=== PATIENT | male | born 1950 | race African-American/Black ===

== ENCOUNTER 2018-02-22 21:09 | Inpatient (IN) | payer OTHER, BC ==
[2018-02-22] MEDS ORDERED: SODIUM CHLORIDE 1,000 ML IV STA (21:25)
--- NOTE | 2018-02-22 21:25 | PDOC ---
Rapid Medical Evaluation Time Seen by Provider: 02/22/18 21:22 Medical Evaluation: Allergies Allergy/AdvReac Type Severity Reaction Status Date / Time No Known Allergies Allergy Verified 06/27/11 08:41 02/22/18 21:22 pt c/o: vomiting since yesterday, glucose reading over 600. took insulin which decreased glucose to 312. now elevated over 600, polydypsia Pt on brief exam: 106, afebrile Pt ordered for: labs, urine, fs, ivf pt to proceed to the ED Discharge Disposition - Diagnosis Vomiting - Referrals Referrals: Moisés Guo [Primary Care Provider] - - Patient Instructions - Post Discharge Activity
[2018-02-22 21:49] LABS: HEMATOCRIT 37.1 % (35.4-49); HEMOGLOBIN 11.9 GM/dL (11.7-16.9); LYMPH % 6.2 % (8-40); MCH 32.4 pg (25.7-33.7); MCHC 32.1 g/dl (32.0-35.9); MEAN CELL VOLUME 100.7 fl (80-96); MEAN PLT VOLUME 9.5 fl (7.5-11.1); MONO % 6.9 % (3.8-10.2); NEUT % 86.9 % (42.8-82.8); PLATELET COUNT 229 K/MM3 (134-434); RBC 3.68 M/mm3 (4.00-5.60); RDW 15.4 % (11.9-15.9); WHITE BLOOD COUNT 11.1 K/mm3 (4.0-10.0)
[2018-02-22 21:54] LABS: VENOUS PH 7.25 (7.32-7.42); VENOUS PO2 61.1 mmHg (28-48)
[2018-02-22] MEDS ORDERED: LACTATED RINGERS SOLUTION 1000 ML INFUS.BAG IV ONE (22:10)
--- NOTE | 2018-02-22 22:33 | PDOC ---
History of Present Illness - General Chief Complaint: Blood Sugar Problem Stated Complaint: BLOOD SUGAR PROBLEMS Time Seen by Provider: 02/22/18 21:22 History Source: Patient Exam Limitations: No Limitations Past History - Past Medical History Allergies/Adverse Reactions: Allergies Allergy/AdvReac Type Severity Reaction Status Date / Time No Known Allergies Allergy Verified 02/22/18 21:27 Home Medications: Ambulatory Orders Aspirin 81 mg PO DAILY 06/27/11 Insulin (LOG) Aspart [NovoLOG] unit SQ AM 06/27/11 Insulin Detemir [Levemir] 36 unit SQ HS 06/27/11 Levothyroxine Sodium [Synthroid] mcg PO DAILY 06/27/11 COPD: No Diabetes: Yes (IDDM) HTN: Yes Hypercholesterolemia: Yes Thyroid Disease: Yes (hypothyroidism) - Suicide/Smoking/Psychosocial Hx Smoking Status: No Smoking History: Never smoked Have you smoked in the past 12 months: No Number of Cigarettes Smoked Daily: 0 Information on smoking cessation initiated: No Hx Alcohol Use: No Drug/Substance Use Hx: No *Physical Exam - Vital Signs Last Vital Signs Temp Pulse Resp BP Pulse Ox 98.2 F 106 H 22 H 128/34 L 98 02/22/18 21:24 02/22/18 21:24 02/22/18 21:24 02/22/18 21:24 02/22/18 21:24 - Physical Exam General Appearance: No: Apparent Distress HEENT: positive: Other (Dry mucous membranes) Respiratory/Chest: positive: Lungs Clear, Normal Breath Sounds. negative: Respiratory Distress Cardiovascular: positive: Regular Rhythm, Regular Rate, S1, S2. negative: Murmur Gastrointestinal/Abdominal: positive: Normal Bowel Sounds, Soft. negative: Tender, Distended, Guarding, Rebound Integumentary: positive: Normal Color Neurologic: positive: Fully Oriented, Alert, Normal Mood/Affect Moderate Sedation - Procedure Monitoring Vital Signs: Procedure Monitoring Vital Signs Temperature 98.2 F 02/22/18 21:24 Pulse Rate 106 H 02/22/18 21:24 Respiratory Rate 22 H 02/22/18 21:24 Blood Pressure 128/34 L 02/22/18 21:24 O2 Sat by Pulse Oximetry (%) 98 02/22/18 21:24 ED Treatment Course - LABORATORY CBC & Chemistry Diagram: 02/22/18 21:34 02/22/18 21:34 - ADDITIONAL ORDERS Additional order review: Laboratory Results 02/22/18 02/22/18 21:36 21:34 VBG pH 7.25 L POC VBG pCO2 27.0 L POC VBG pO2 61.1 H Mixed VBG HCO3 11.4 L* Lipase 120 02/22/18 21:34 RBC 3.68 L MCV 100.7 H MCHC 32.1 RDW 15.4 D MPV 9.5 D Neutrophils % 86.9 H D Lymphocytes % 6.2 L D Monocytes % 6.9 Eosinophils % 0.0 D Basophils % 0.0 - Medications Given in the ED: ED Medications Discontinued Medications Generic Name Dose Route Start Last Admin Trade Name Freq PRN Reason Stop Dose Admin Sodium Chloride 1,000 mls @ 1,000 mls/hr 02/22/18 21:25 02/22/18 21:51 Normal Saline - IV 02/22/18 22:24 1,000 mls/hr ASDIR STA Administration Lactated Ringer's 2,000 ml 02/22/18 22:10 02/22/18 22:16 Lactated Ringers Solution IV 02/22/18 22:11 2,000 ml ONCE ONE Administration Medical Decision Making - Medical Decision Making 67 y/o M hx of Type 1 DM (on insulin pump; gets Humulin), HTN, hypothyroidism presents with NBNB emesis from yesterday and noted hyperglycemia today. States his sugar was 507 around 1 PM today for which he gave himself 10 units of insulin. Around 4:20 PM, he checked his sugar again and it was 600 so he gave himself another 10 units of insulin. Denies ever having this high of sugar before. Denies fever, URI sxs, SOB, CP, abd pain, diarrhea, urinary complaints, dizziness. Patient's labs concerning for acidosis with pH of 7.25 and bicarb of 11.4 Concern for DKA Rest of chemistry pending Currently patient is receiving 2L LR bolus Will consider starting insulin depending on K level 02/22/18 22:28 Labs concerning for DKA with elevated anion gap; K is 5.1 Patient given insulin bolus and started on insulin drip IV hydration continued Patient accepted to ICU service 02/22/18 23:16 *DC/Admit/Observation/Transfer Diagnosis at time of Disposition: DKA (diabetic ketoacidoses) Qualifiers: Diabetes mellitus type: type 1 Diabetes mellitus complication detail: without coma Qualified Code(s): E10.10 - Type 1 diabetes mellitus with ketoacidosis without coma - Discharge Dispostion Condition at time of disposition: Stable Decision to Admit order: Yes - Referrals Referrals: Moisés Guo [Primary Care Provider] - - Patient Instructions - Post Discharge Activity
[2018-02-22 22:35] LABS: ALBUMIN 3.8 g/dl (3.4-5.0); ALK PHOS 122 U/L (45-117); ANION GAP 26 MMOL/L (8-16); BILIRUBIN,TOTAL 1.7 mg/dL (0.2-1); BLOOD UREA NITROGEN 63 mg/dL (7-18); CALCIUM 8.5 mg/dL (8.5-10.1); CHLORIDE 90 mmol/L (98-107); CO2 13 mmol/L (21-32); CREATININE 3.3 mg/dL (0.55-1.3); POTASSIUM 5.1 mmol/L (3.5-5.1); SGOT/AST 39 U/L (15-37); SGPT/ALT 46 U/L (13-61); SODIUM 129 mmol/L (136-145); TOT PROT 7.2 g/dl (6.4-8.2)
[2018-02-22 22:43] LABS: GLUCOSE,RANDOM 929 mg/dL (74-106)
[2018-02-22] MEDS ORDERED: INSULIN REGULAR HUMAN 100 UNITS/ML *VIAL IVPUSH ONE (22:44)
[2018-02-22] MEDS ORDERED: INSULIN REGULAR 100 UNITS in SODIUM CHLORIDE 99 ML IVPB SCH (22:45)
--- NOTE | 2018-02-22 22:46 | PDOC ---
*Physical Exam - Vital Signs Last Vital Signs Temp Pulse Resp BP Pulse Ox 98.2 F 106 H 22 H 128/34 L 98 02/22/18 21:24 02/22/18 21:24 02/22/18 21:24 02/22/18 21:24 02/22/18 21:24 Heart Score/ECG Review - ECG Impressions Comment:: 02/23/18 05:11 Twelve-lead EKG was performed and reviewed by me. There is normal sinus rhythm with a rate of 108 rbbb imp: sinus tachycardia ED Treatment Course - LABORATORY CBC & Chemistry Diagram: 02/25/18 05:30 02/25/18 05:30 - ADDITIONAL ORDERS Additional order review: Laboratory Results 02/22/18 02/22/18 02/22/18 21:36 21:34 21:34 VBG pH 7.25 L POC VBG pCO2 27.0 L POC VBG pO2 61.1 H Mixed VBG HCO3 11.4 L* Sodium 129 L Potassium 5.1 Chloride 90 L Carbon Dioxide 13 L Anion Gap 26 H BUN 63 H Creatinine 3.3 H Creat Clearance w eGFR 18.91 Calcium 8.5 Total Bilirubin 1.7 H AST 39 H ALT 46 Alkaline Phosphatase 122 H Total Protein 7.2 Albumin 3.8 Lipase 120 02/22/18 21:34 RBC 3.68 L MCV 100.7 H MCHC 32.1 RDW 15.4 D MPV 9.5 D Neutrophils % 86.9 H D Lymphocytes % 6.2 L D Monocytes % 6.9 Eosinophils % 0.0 D Basophils % 0.0 - Medications Given in the ED: ED Medications Discontinued Medications Generic Name Dose Route Start Last Admin Trade Name Lennoxq PRN Reason Stop Dose Admin Sodium Chloride 1,000 mls @ 1,000 mls/hr 02/22/18 21:25 02/22/18 21:51 Normal Saline - IV 02/22/18 22:24 1,000 mls/hr ASDIR STA Administration Lactated Ringer's 2,000 ml 02/22/18 22:10 02/22/18 22:16 Lactated Ringers Solution IV 02/22/18 22:11 2,000 ml ONCE ONE Administration Medical Decision Making - Medical Decision Making 02/22/18 22:38 67y M hx of IDDM presents with vomiting for sevreal days. denies any fever/ chills/diarrhea/cp/cough/abd pain. Pt notes he has been unable to tolerate any intake for the past 3 days including fluids. last episode of dka when he was initially diagnosed with diabetes. exam: general: well appearing in no distress heent: dry mmm card: slightly tachy abd soft, nontender, no rebound/guarding labs reviewed consistent with dka will start insulin gtt fluids for hydration will admit to ICU CRITICAL CARE DOCUMENTATION: I spent 35 minutes of Critical Care time, excluding separately billable procedures, involving high complexity decision making to assess, manipulate and support vital system function(s) to treat single or multiple vital organ system failure and/or to prevent further life threatening deterioration of the patient' s condition. 03/01/18 08:01 The patient was seen and evaluated in conjunction with [facility] under my direct supervision, ancillary studies were reviewed. I independently evaluated the patient and I agree with the plan as outlined by [facility] . *DC/Admit/Observation/Transfer Diagnosis at time of Disposition: DKA (diabetic ketoacidoses) Qualifiers: Diabetes mellitus type: type 1 Diabetes mellitus complication detail: without coma Qualified Code(s): E10.10 - Type 1 diabetes mellitus with ketoacidosis without coma - Discharge Dispostion Condition at time of disposition: Improved - Referrals - Patient Instructions - Post Discharge Activity
[2018-02-22] MEDS ORDERED: INSULIN REGULAR HUMAN 100 UNITS/ML *VIAL ONE (22:49)
[2018-02-22 22:55] LABS: ACETONE SERUM POSITIVE MODERATE 2+ (NEGATIVE)
[2018-02-22] MEDS ORDERED: ONDANSETRON 4 MG/2 ML VIAL IVPB ONE (22:57)
[2018-02-22] MEDS ORDERED: ONDANSETRON 4 MG/2 ML VIAL ONE (22:57)
[2018-02-22] MEDS ORDERED: SODIUM CHLORIDE 0.9%/KCL 20 MEQ/1,000 ML INFUS.BAG IV SCH (23:00)
[2018-02-22] MEDS ORDERED: SODIUM CHLORIDE 1,000 ML IV ONE (23:45)
--- NOTE | 2018-02-22 23:48 | CONSULT ---
Consult Consult Specialty:: Pulm/CCM Referred by:: Dr. Mckeon Reason for Consultation:: DKA - History of Present Illness History of Present Illness: 67 yo M h/o IDDM type I on insulin pump w/ humulin, HTN, hypothyroidism on synthroid p/w n/v x 2 days and uncontrolled blood sugar. Patient said his pump showed that his blood sugar was in the 500s, he gave himself 10 units but it came back up to 600, for which he gave himself another 10 units. He reported that the pump is planted 6 months ago and it's working fine with proper amount of insulin doses equipped. He's vomited 6 times today and it was NBNB. Denies fever, chills, cough, urinary or bowel sx. - History Source History Provided By: Patient, Family Member - Past Medical History Cardio/Vascular: Yes: HTN Endocrine: Yes: Diabetes Mellitus, Hypothyroidism - Alcohol/Substance Use Hx Alcohol Use: No - Smoking History Smoking history: Never smoked Have you smoked in the past 12 months: No Aproximately how many cigarettes per day: 0 Home Medications - Allergies Allergies/Adverse Reactions: Allergies Allergy/AdvReac Type Severity Reaction Status Date / Time No Known Allergies Allergy Verified 02/22/18 21:27 - Home Medications Home Medications: Ambulatory Orders Aspirin 81 mg PO DAILY 06/27/11 Insulin (LOG) Aspart [NovoLOG] 81 unit SQ AM 06/27/11 Insulin Detemir [Levemir] 36 unit SQ HS 06/27/11 Levothyroxine Sodium [Synthroid] 25 mcg PO DAILY 06/27/11 Losartan/Hydrochlorothiazide [Losartan-Hctz 100-25 mg Tab] 1 each PO HS Simvastatin 20 mg PO HS 02/22/18 Review of Systems - Review of Systems Constitutional: denies: Chills, Fever Cardiovascular: denies: Chest Pain Respiratory: denies: Cough, SOB Gastrointestinal: reports: Nausea, Vomiting. denies: Diarrhea, Vomiting Blood Genitourinary: reports: No Symptoms Neurological: reports: No Symptoms Physical Exam Vital Signs: Vital Signs Temperature 98.2 F 02/22/18 21:24 Pulse Rate 106 H 02/22/18 21:24 Respiratory Rate 22 H 02/22/18 21:24 Blood Pressure 128/34 L 02/22/18 21:24 O2 Sat by Pulse Oximetry (%) 98 02/22/18 21:24 Constitutional: Yes: No Distress, Calm, Obese Eyes: Yes: Conjunctiva Clear, EOM Intact HENT: Yes: Atraumatic, Normocephalic Cardiovascular: Yes: Regular Rate and Rhythm, S1, S2. No: Murmur Respiratory: Yes: CTA Bilaterally Gastrointestinal: Yes: Normal Bowel Sounds, Abdomen, Obese, Tenderness (LUQ), Vomiting Edema: No Neurological: Yes: Alert, Oriented Labs: CBC, BMP 02/22/18 21:34 02/22/18 21:34 Imaging - Results X-ray: Image Reviewed Assessment/Plan 67 yo M h/o IDDM type I admitted to the ICU for DKA. A: DKA HTN Hypothyroidism CKD likely due to DM P: cont. insulin gtt w/ NS @500cc till glc reaches 200 then reduce to insulin gtt to 6 units/hour and switch fluids to d5w-1/2ns @250cc maintain K+ between 3-5 FS q1h, BMP q4h cont. synthroid and asa David Brown PGY3 ICU resident Visit type - Emergency Visit Emergency Visit: Yes ED Registration Date: 02/22/18 Care time: The patient presented to the Emergency Department on the above date and was hospitalized for further evaluation of their emergent condition. - New Patient This patient is new to me today: Yes Date on this admission: 02/23/18 - Critical Care Critical Care patient: Yes Total Critical Care Time (in minutes): 35 Critical Care Statement: The care of this patient involved high complexity decision making to prevent further life threatening deterioration of the patient 's condition and/or to evaluate & treat vital organ system(s) failure or risk of failure.
[2018-02-23 00:35] LABS: ANION GAP 27 MMOL/L (8-16); BLOOD UREA NITROGEN 69 mg/dL (7-18); CALCIUM 8.3 mg/dL (8.5-10.1); CHLORIDE 90 mmol/L (98-107); CO2 13 mmol/L (21-32); CREATININE 3.4 mg/dL (0.55-1.3); POTASSIUM 5.4 mmol/L (3.5-5.1); SODIUM 130 mmol/L (136-145)
[2018-02-23 00:36] LABS: GLUCOSE,RANDOM 927 mg/dL (74-106)
[2018-02-23] MEDS ORDERED: INSULIN REGULAR 100 UNITS in SODIUM CHLORIDE 99 ML IVPB SCH ×2 (00:41→23:30)
[2018-02-23 00:45] VITALS: BMI 33.6
[2018-02-23 03:58] LABS: BASO % 0.1 % (0-2.0); HEMATOCRIT 31.3 % (35.4-49); HEMOGLOBIN 10.7 GM/dL (11.7-16.9); LYMPH % 10.3 % (8-40); MCH 32.7 pg (25.7-33.7); MEAN CELL VOLUME 96.1 fl (80-96); MEAN PLT VOLUME 9.3 fl (7.5-11.1); MONO % 8.1 % (3.8-10.2); NEUT % 81.5 % (42.8-82.8); PLATELET COUNT 207 K/MM3 (134-434); RBC 3.26 M/mm3 (4.00-5.60); RDW 14.2 % (11.9-15.9); WHITE BLOOD COUNT 10.9 K/mm3 (4.0-10.0)
[2018-02-23 04:29] LABS: ANION GAP 16 MMOL/L (8-16); BLOOD UREA NITROGEN 72 mg/dL (7-18); CALCIUM 7.5 mg/dL (8.5-10.1); CHLORIDE 96 mmol/L (98-107); CO2 21 mmol/L (21-32); CREATININE 3.7 mg/dL (0.55-1.3); MAGNESIUM 2.8 mg/dL (1.8-2.4); SODIUM 132 mmol/L (136-145)
[2018-02-23 04:33] LABS: GLUCOSE,RANDOM 693 mg/dL (74-106)
[2018-02-23] MEDS ORDERED: SODIUM CHLORIDE 0.9%/KCL 20 MEQ/1,000 ML INFUS.BAG IV SCH (06:30)
[2018-02-23] MEDS: LEVOTHYROXINE NA 25 MCG TABLET (FP) PO SCH (06:35)
--- NOTE | 2018-02-23 07:46 | PN ---
Physical Exam: SUBJECTIVE: Patient seen and examined. Reports abdominal pain resolved, +nausea , denies vomiting. Feels overall improved this AM. OBJECTIVE: Vital Signs Period Temp Pulse Resp BP Sys/Evans Pulse Ox Last 24 Hr 98.1 F-98.9 F 86-110 14-22 110-128/34-64 96-100 GENERAL: Awake, alert, and fully oriented, in no acute distress HEAD: No signs of trauma, normocephalic, atraumatic EYES: PERRLA, EOMI, sclera anicteric, conjunctiva clear ENT: Hearing grossly normal, nares patent, oropharynx clear without exudates. Moist mucosa LUNGS: No distress, speaks full sentences, clear to auscultation bilaterally HEART: Regular rate and rhythm, normal S1 and S2, no murmurs appreciated, peripheral pulses normal and equal bilaterally ABDOMEN: Soft, nontender, normoactive bowel sounds. No guarding, no rebound EXTREMITIES : Normal inspection, Normal range of motion, no edema. No clubbing or cyanosis NEUROLOGICAL: Cranial nerves II through XII grossly intact. Normal speech, normal gait, no focal sensorimotor deficits SKIN: Warm, Dry ASSESSMENT/PLAN: The pt is a 67M w/ a PMH of T1DM on an insulin pump who was admitted to the ICU for DKA which is now resolved Neuro Pain well controlled CV HTN -Cont. home losartan HLD -Cont. home statin PULM Breathing comfortably on RA GI Nutrition -Will transition to PO when insulin gtt D/C'ed Adequate Uop CKD -Nephrology consulted IVF -NS w/ 20mEq KCl @ 125 HEME No anemia ID Afebrile, non-tachycardic, no leukocytosis ENDO T1DM w/ DKA -DKA resolved -Will D/C insulin gtt Hyperglycemia -Transition to pt's insulin pump -Continue IVF Hypothyroidism -Continue home synthroid MSK -OOB LTD -PIV Dispo: Patient does not require ICU level of care, plan to transfer to floor after D/C insulin gtt Visit type - Emergency Visit Emergency Visit: Yes ED Registration Date: 02/22/18 Care time: The patient presented to the Emergency Department on the above date and was hospitalized for further evaluation of their emergent condition. - New Patient This patient is new to me today: Yes Date on this admission: 02/23/18 - Critical Care Critical Care patient: Yes Total Critical Care Time (in minutes): 40 Critical Care Statement: The care of this patient involved high complexity decision making to prevent further life threatening deterioration of the patient 's condition and/or to evaluate & treat vital organ system(s) failure or risk of failure.
[2018-02-23 08:31] LABS: ANION GAP 11 MMOL/L (8-16); BLOOD UREA NITROGEN 74 mg/dL (7-18); CALCIUM 7.9 mg/dL (8.5-10.1); CHLORIDE 98 mmol/L (98-107); CO2 24 mmol/L (21-32); CREATININE 3.6 mg/dL (0.55-1.3); SODIUM 134 mmol/L (136-145)
[2018-02-23 08:35] LABS: GLUCOSE,RANDOM 579 mg/dL (74-106)
[2018-02-23] MEDS ORDERED: PT OWN MED DRAWER 7, Y5N ONE (08:57)
[2018-02-23 10:10] LABS: ARTERIAL BLOOD GAS BASE EXCESS 1.1 meq/l (-2-2); ARTERIAL BLOOD GAS PCO2 43.2 mmHg (35-45); ARTERIAL BLOOD GAS PO2 83.1 mmHg (80-100); ARTERIAL BLOOD GAS pH 7.39 (7.35-7.45)
[2018-02-23 10:13] LABS: ALLENS TEST POSITIVE
[2018-02-23] MEDS: HEPARIN NA (PORCINE) 5,000 UNITS/ML 1ML VIAL SQ SCH ×2 (10:26→21:09)
[2018-02-23] MEDS: ASPIRIN 81 MG CHEWABLE TABLETS PO SCH (10:26)
[2018-02-23] MEDS: MUPIROCIN 2% TOPICAL OINTMENT FOR DECOLONIZATION NS SCH ×2 (10:26→21:09)
--- NOTE | 2018-02-23 11:48 | HP ---
Admitting History and Physical - Primary Care Physician PCP: Josselyn Mace I - Admission History Source: Patient Limitations to Obtaining History: No Limitations - Past Medical History Cardiovascular: Yes: HTN Endocrine: Yes: Diabetes Mellitus, Hypothyroidism - Smoking History Smoking history: Never smoked Have you smoked in the past 12 months: No Aproximately how many cigarettes per day: 0 - Alcohol/Substance Use Hx Alcohol Use: No - Social History ADL: Independent Home Medications - Allergies Allergies/Adverse Reactions: Allergies Allergy/AdvReac Type Severity Reaction Status Date / Time No Known Allergies Allergy Verified 02/22/18 21:27 - Home Medications Home Medications: Ambulatory Orders Aspirin 81 mg PO DAILY 06/27/11 Insulin (LOG) Aspart [NovoLOG] 81 unit SQ AM 06/27/11 Insulin Detemir [Levemir] 36 unit SQ HS 06/27/11 Levothyroxine Sodium [Synthroid] 25 mcg PO DAILY 06/27/11 Losartan/Hydrochlorothiazide [Losartan-Hctz 100-25 mg Tab] 1 each PO HS Simvastatin 20 mg PO HS 02/22/18 Review of Systems - Review of Systems Constitutional: reports: No Symptoms Eyes: reports: No Symptoms HENT: reports: No Symptoms Neck: reports: No Symptoms Cardiovascular: reports: No Symptoms Respiratory: reports: No Symptoms Gastrointestinal: reports: No Symptoms Genitourinary: reports: No Symptoms Breasts: reports: No Symptoms Reported Musculoskeletal: reports: No Symptoms Integumentary: reports: No Symptoms Neurological: reports: No Symptoms Endocrine: reports: Increased Hunger, Other (Vomiting) Hematology/Lymphatic: reports: No Symptoms Psychiatric: reports: No Symptoms Physical Examination Vital Signs: Vital Signs Temperature 98.6 F 02/23/18 10:00 Pulse Rate 73 02/23/18 10:00 Respiratory Rate 25 H 02/23/18 10:00 Blood Pressure 113/51 L 02/23/18 10:00 O2 Sat by Pulse Oximetry (%) 100 02/23/18 09:00 Constitutional: Yes: Well Nourished Eyes: Yes: Conjunctiva Clear HENT: Yes: Atraumatic, Normocephalic Neck: Yes: Supple, Trachea Midline Cardiovascular: Yes: Regular Rate and Rhythm Respiratory: Yes: Regular, CTA Bilaterally Gastrointestinal: Yes: Normal Bowel Sounds, Soft ...Rectal Exam: Yes: Deferred Renal/: Yes: WNL Breast(s): Yes: WNL Musculoskeletal: Yes: WNL Extremities: Yes: WNL Edema: No Peripheral Pulses WNL: Yes Integumentary: Yes: WNL Neurological: Yes: Alert, Oriented ...Motor Strength: WNL Psychiatric: Yes: Alert, Oriented Labs: CBC, BMP 02/23/18 03:30 02/23/18 05:30 Assessment/Plan 67 y/o male admitted to ICU for BG > 600 and vomiting for several days. PMHX includes HTN, IDDM and Hypothyroidism.
--- NOTE | 2018-02-23 11:54 | EKG ---
Test Reason : Blood Pressure : / mmHG Vent. Rate : 108 BPM Atrial Rate : 108 BPM P-R Int : 170 ms QRS Dur : 118 ms QT Int : 382 ms P-R-T Axes : 069 116 039 degrees QTc Int : 511 ms SINUS TACHYCARDIA RIGHT BUNDLE BRANCH BLOCK ABNORMAL ECG NO PREVIOUS ECGS AVAILABLE Confirmed by PJ CRAIG, JAY JAY ([id number]) on 02/23/2018 11:54:11 AM Referred By: Confirmed By:JAY JAY OLIVA MD
--- NOTE | 2018-02-23 13:20 | PN ---
Teaching Attending Note Name of Resident: Jus Stiles ATTENDING PHYSICIAN STATEMENT I saw and evaluated the patient. I reviewed the resident's note and discussed the case with the resident. I agree with the resident's findings and plan as documented. SUBJECTIVE: Patient seen and examined in the ICU. Awake and alert. Remains on IV Insulin drip. Blood sugars are still in the [address] Patel is his Fine [employer] P[employer] and he does have a apparent functioning Insulin pump. No CP or SOB. Intake & Output 02/20/18 02/21/18 02/22/18 02/23/18 23:59 23:59 23:59 23:59 Intake Total 1350 Output Total 500 Balance 850 Weight 262 lb 1 oz Last Vital Signs Temp Pulse Resp BP Pulse Ox 98.6 F 73 25 H 110/52 L 100 02/23/18 10:00 02/23/18 10:00 02/23/18 12:00 02/23/18 12:00 02/23/18 09:00 Active Medications Aspirin (Asa -) 81 mg PO DAILY [facility] Last Admin: 02/23/18 10:26 Dose: 81 mg Atorvastatin Calcium (Lipitor -) 10 mg PO HS [facility] Chlorhexidine Gluconate (Hibiclens For Decolonization -) 1 applic TP HS [facility] Heparin Sodium (Porcine) (Heparin -) 5,000 unit SQ BID [facility] Last Admin: 02/23/18 10:26 Dose: 5,000 unit Insulin Human Regular 100 (units/ Sodium Chloride) 100 mls @ 24.22 mls/hr IVPB [facility]IT[facility]; Protocol Last Admin: 02/23/18 00:30 Dose: 0.2 units/kg/hr, 24.22 mls/hr Potassium Chloride/Sodium Chloride (Ns+20 Meq Kcl -) 20 meq in 1,000 mls @ 250 mls/hr IV ASDIR [facility] Last Admin: 02/23/18 06:38 Dose: 250 mls/hr Levothyroxine Sodium (Synthroid -) 25 mcg PO DAILY@0700 [facility] Last Admin: 02/23/18 06:35 Dose: 25 mcg Losartan Potassium (Cozaar -) 100 mg PO HS [facility] Mupirocin (Bactroban Ointment (For Decolonization) -) 1 applic NS BID [facility] Stop: 02/28/18 09:59 Last Admin: 02/23/18 10:26 Dose: 1 applic Pneumococcal 13-Valent Conj Vacc (Prevnar 13 Syringe -) 0.5 ml IM .ONCE ONE Stop: 02/23/18 00:46 Constitutional: Yes: No Distress, Calm, Obese Eyes: Yes: Conjunctiva Clear, EOM Intact HENT: Yes: Atraumatic, Normocephalic Cardiovascular: Yes: Regular Rate and Rhythm, S1, S2. No: Murmur Respiratory: Yes: CTA Bilaterally Gastrointestinal: Yes: Normal Bowel Sounds, Obese, Non tender Edema: No Neurological: Yes: Alert, Oriented Labs: Laboratory Results - last 24 hr 02/22/18 02/22/18 02/22/18 21:34 21:34 21:34 WBC 11.1 H RBC 3.68 L Hgb 11.9 Hct 37.1 MCV 100.7 H MCH 32.4 MCHC 32.1 RDW 15.4 D Plt Count 229 MPV 9.5 D Absolute Neuts (auto) 9.6 H Neutrophils % 86.9 H D Lymphocytes % 6.2 L D Monocytes % 6.9 Eosinophils % 0.0 D Basophils % 0.0 Nucleated RBC % 0 Puncture Site ABG pH ABG pCO2 at Pt Temp ABG pO2 at Pt Temp ABG HCO3 ABG O2 Sat (Measured) ABG O2 Content ABG Base Excess Sebastián Test VBG pH POC VBG pCO2 POC VBG pO2 Mixed VBG HCO3 Oxygen Flow Rate Sodium 129 L Potassium 5.1 Chloride 90 L Carbon Dioxide 13 L Anion Gap 26 H BUN 63 H Creatinine 3.3 H Creat Clearance w eGFR 18.91 POC Glucometer Random Glucose 929 H* Hemoglobin A1c % Calcium 8.5 Magnesium Total Bilirubin 1.7 H AST 39 H ALT 46 Alkaline Phosphatase 122 H Total Protein 7.2 Albumin 3.8 Lipase 120 Acetone, Qual Positive moderate 2+ 02/22/18 02/22/18 02/22/18 21:36 22:14 23:35 WBC RBC Hgb Hct MCV MCH MCHC RDW Plt Count MPV Absolute Neuts (auto) Neutrophils % Lymphocytes % Monocytes % Eosinophils % Basophils % Nucleated RBC % Puncture Site ABG pH ABG pCO2 at Pt Temp ABG pO2 at Pt Temp ABG HCO3 ABG O2 Sat (Measured) ABG O2 Content ABG Base Excess Sebastián Test VBG pH 7.25 L POC VBG pCO2 27.0 L POC VBG pO2 61.1 H Mixed VBG HCO3 11.4 L* Oxygen Flow Rate Sodium 130 L Potassium 5.4 H Chloride 90 L Carbon Dioxide 13 L Anion Gap 27 H BUN 69 H Creatinine 3.4 H Creat Clearance w eGFR 18.27 POC Glucometer > 400 Random Glucose 927 H* Hemoglobin A1c % Calcium 8.3 L Magnesium Total Bilirubin AST ALT Alkaline Phosphatase Total Protein Albumin Lipase Acetone, Qual 02/23/18 02/23/18 02/23/18 00:38 02:06 03:13 WBC RBC Hgb Hct MCV MCH MCHC RDW Plt Count MPV Absolute Neuts (auto) Neutrophils % Lymphocytes % Monocytes % Eosinophils % Basophils % Nucleated RBC % Puncture Site ABG pH ABG pCO2 at Pt Temp ABG pO2 at Pt Temp ABG HCO3 ABG O2 Sat (Measured) ABG O2 Content ABG Base Excess Sebastián Test VBG pH POC VBG pCO2 POC VBG pO2 Mixed VBG HCO3 Oxygen Flow Rate Sodium Potassium Chloride Carbon Dioxide Anion Gap BUN Creatinine Creat Clearance w eGFR POC Glucometer > 400 > 400 > 400 Random Glucose Hemoglobin A1c % Calcium Magnesium Total Bilirubin AST ALT Alkaline Phosphatase Total Protein Albumin Lipase Acetone, Qual 02/23/18 02/23/18 02/23/18 03:30 03:30 05:08 WBC 10.9 H RBC 3.26 L Hgb 10.7 L Hct 31.3 L D MCV 96.1 H MCH 32.7 MCHC 34.0 RDW 14.2 Plt Count 207 MPV 9.3 Absolute Neuts (auto) 8.9 H Neutrophils % 81.5 Lymphocytes % 10.3 D Monocytes % 8.1 Eosinophils % 0.0 Basophils % 0.1 D Nucleated RBC % 0 Puncture Site ABG pH ABG pCO2 at Pt Temp ABG pO2 at Pt Temp ABG HCO3 ABG O2 Sat (Measured) ABG O2 Content ABG Base Excess Sebastián Test VBG pH POC VBG pCO2 POC VBG pO2 Mixed VBG HCO3 Oxygen Flow Rate Sodium 132 L Potassium 4.0 Chloride 96 L Carbon Dioxide 21 Anion Gap 16 BUN 72 H Creatinine 3.7 H Creat Clearance w eGFR 16.57 POC Glucometer > 400 Random Glucose 693 H* Hemoglobin A1c % Calcium 7.5 L Magnesium 2.8 H Total Bilirubin AST ALT Alkaline Phosphatase Total Protein Albumin Lipase Acetone, Qual 02/23/18 02/23/18 02/23/18 05:30 05:30 06:09 WBC RBC Hgb Hct MCV MCH MCHC RDW Plt Count MPV Absolute Neuts (auto) Neutrophils % Lymphocytes % Monocytes % Eosinophils % Basophils % Nucleated RBC % Puncture Site ABG pH ABG pCO2 at Pt Temp ABG pO2 at Pt Temp ABG HCO3 ABG O2 Sat (Measured) ABG O2 Content ABG Base Excess Sebastián Test VBG pH POC VBG pCO2 POC VBG pO2 Mixed VBG HCO3 Oxygen Flow Rate Sodium 134 L Potassium 4.0 Chloride 98 Carbon Dioxide 24 Anion Gap 11 BUN 74 H Creatinine 3.6 H Creat Clearance w eGFR 17.10 POC Glucometer > 400 Random Glucose 579 H* Hemoglobin A1c % 9.7 H Calcium 7.9 L Magnesium Total Bilirubin AST ALT Alkaline Phosphatase Total Protein Albumin Lipase Acetone, Qual 02/23/18 02/23/18 02/23/18 08:24 09:38 10:00 WBC RBC Hgb Hct MCV MCH MCHC RDW Plt Count MPV Absolute Neuts (auto) Neutrophils % Lymphocytes % Monocytes % Eosinophils % Basophils % Nucleated RBC % Puncture Site Right radial ABG pH 7.39 ABG pCO2 at Pt Temp 43.2 ABG pO2 at Pt Temp 83.1 ABG HCO3 25.7 ABG O2 Sat (Measured) 96.0 ABG O2 Content 14.4 L ABG Base Excess 1.1 Sebastián Test Positive VBG pH POC VBG pCO2 POC VBG pO2 Mixed VBG HCO3 Oxygen Flow Rate Room air Sodium Potassium Chloride Carbon Dioxide Anion Gap BUN Creatinine Creat Clearance w eGFR POC Glucometer [phone] Random Glucose Hemoglobin A1c % Calcium Magnesium Total Bilirubin AST ALT Alkaline Phosphatase Total Protein Albumin Lipase Acetone, Qual 02/23/18 02/23/18 11:27 12:33 WBC RBC Hgb Hct MCV MCH MCHC RDW Plt Count MPV Absolute Neuts (auto) Neutrophils % Lymphocytes % Monocytes % Eosinophils % Basophils % Nucleated RBC % Puncture Site ABG pH ABG pCO2 at Pt Temp ABG pO2 at Pt Temp ABG HCO3 ABG O2 Sat (Measured) ABG O2 Content ABG Base Excess Sebastián Test VBG pH POC VBG pCO2 POC VBG pO2 Mixed VBG HCO3 Oxygen Flow Rate Sodium Potassium Chloride Carbon Dioxide Anion Gap BUN Creatinine Creat Clearance w eGFR POC Glucometer [phone] Random Glucose Hemoglobin A1c % Calcium Magnesium Total Bilirubin AST ALT Alkaline Phosphatase Total Protein Albumin Lipase Acetone, Qual Assessment/Plan Resolving DKA / Hyperosmolar state IDDM HTN Hypothyroidism CKD likely due to DM R/O KEERTHI Insulin drip Can transition to SQ or if information can be obtained from [employer] his Insulin pump can be restarted Would continue IVF resuscitation Monitor I & O O2 as needed VTE prophylaxis Would sleep screen Replete electrolytes as indicated PO as tolerated ICU monitoring while on IV Insulin Dr Self Critical care time spent in reviewing chart, evaluating patient and formulating plan - 36 minutes.
--- NOTE | 2018-02-23 14:13 | CONSULT ---
Consult - text type - Consultation Consultation Note: Renal Consult for KEERTHI vs. CKD This is a 67 year old gentleman with hx of DM Type 1 on insulin, hypothyroidism who presented with N/V and found to have DKA with Cr of 3.3 to 3.6. Pt denies any history of CKD but reports he was placed on Losartan/HCTZ for renal protection 5 years ago. Denies any obstructive symptoms but did have increased urine output overt the past 3 days. Denies any flank pain dysuria or hematuria. Denies any NSAID use, no recent contrast exposure. No skin rash or recent Abx exposure. Denies any family hx of CKD. Reports BP is usually normal. Denies any cp, abd pain, N/V/D. PMHx: as above Allergies: NKDA Family Hx: NC Social Hx: No T/A/D ROS: as per HPI, all other pertinent ros negative Home Medications Medication Instructions Recorded Aspirin 81 mg PO DAILY 06/27/11 Insulin (LOG) Aspart [NovoLOG] 81 unit SQ AM 06/27/11 Insulin Detemir [Levemir] 36 unit SQ HS 06/27/11 Levothyroxine Sodium [Synthroid] 25 mcg PO DAILY 06/27/11 Losartan/Hydrochlorothiazide 1 each PO HS 02/22/18 [Losartan-Hctz 100-25 mg Tab] Simvastatin 20 mg PO HS 02/22/18 Vital Signs Temperature 97.9 F 02/23/18 13:33 Pulse Rate 82 02/23/18 13:33 Respiratory Rate 25 H 02/23/18 13:33 Blood Pressure 101/77 02/23/18 13:33 O2 Sat by Pulse Oximetry (%) 100 02/23/18 09:00 Intake & Output 02/20/18 02/21/18 02/22/18 02/23/18 23:59 23:59 23:59 23:59 Intake Total 1350 Output Total 500 Balance 850 Weight 118.87 kg NAD awake and alert neck supple, no JVD RRR, No M/R CTA, no rales soft NT/ND no bladder distension no LE edema, clubbing or cyanosis no focal neurological defects CBC, BMP 02/23/18 03:30 02/23/18 05:30 Laboratory Tests 02/22/18 02/23/18 21:34 05:30 Calcium 7.9 L Acetone, Qual Positive moderate 2+ Current Medications Aspirin (Asa -) 81 mg PO DAILY [facility] Last Admin: 02/23/18 10:26 Dose: 81 mg Atorvastatin Calcium (Lipitor -) 10 mg PO HS [facility] Chlorhexidine Gluconate (Hibiclens For Decolonization -) 1 applic TP HS [facility] Heparin Sodium (Porcine) (Heparin -) 5,000 unit SQ BID [facility] Last Admin: 02/23/18 10:26 Dose: 5,000 unit Insulin Human Regular 100 (units/ Sodium Chloride) 100 mls @ 24.22 mls/hr IVPB [facility]; Protocol Last Admin: 02/23/18 00:30 Dose: 0.2 units/kg/hr, 24.22 mls/hr Potassium Chloride/Sodium Chloride (Ns+20 Meq Kcl -) 20 meq in 1,000 mls @ 250 mls/hr IV ASDIR [facility] Last Admin: 02/23/18 06:38 Dose: 250 mls/hr Levothyroxine Sodium (Synthroid -) 25 mcg PO DAILY@0700 [facility] Last Admin: 02/23/18 06:35 Dose: 25 mcg Losartan Potassium (Cozaar -) 100 mg PO HS [facility] Mupirocin (Bactroban Ointment (For Decolonization) -) 1 applic NS BID [facility] Stop: 02/28/18 09:59 Last Admin: 02/23/18 10:26 Dose: 1 applic Pneumococcal 13-Valent Conj Vacc (Prevnar 13 Syringe -) 0.5 ml IM .ONCE ONE Stop: 02/23/18 00:46 67 year old gentleman with hx of DM Type 1 on insulin, hypothyroidism who presented with N/V and found to have DKA with Cr of 3.3 to 3.6. #KEERTHI vs. CKD #DKA #DM Type 1 on insulin #Hypertension #Pseudohyponatremia #Anemia #HLD will need to establish baseline renal function, will contact PMD office to obtain records given clinical setting of DKA, high BUN/Cr ratio suspect underlying hypovolemia as etiology of KEERTHI Check FeNa, UPCR, Urine Eos Renal US showed no overt pathology however kidneys may be small in size given pt is 6'2'' tall Dose all meds for CrCl < 15 Hod ARB until baseline renal function is established No urgent indication for ADMINISTRATIVE INTERN at the present time Check BMP Twice daily Continue aggressive IVF repletion insulin as per ICU Trend H/H Check iron profile, no acute need for transfusion Check CK levels given pt is on statin Thank you Will follow Trip Sanders DO
[2018-02-23 16:49] LABS: URINE APPEARANCE CLEAR; URINE BILIRUBIN NEGATIVE (<2.0 mg/dL); URINE COLOR LTYELLOW; URINE GLUCOSE (UA) 3+ (NEGATIVE); URINE KETONE NEGATIVE (NEGATIVE); URINE LEUK ESTERASE NEGATIVE (NEGATIVE); URINE NITRITE NEGATIVE (NEGATIVE); URINE PROTEIN NEGATIVE (NEGATIVE); URINE UROBILINOGEN NEGATIVE mg/dL (0.2-1.0)
[2018-02-23] MEDS: ATORVASTATIN CA 10 MG TABLET (FP) PO SCH (21:09)
[2018-02-23] MEDS ORDERED: INSULIN (LEVEMIR) 100 UNITS/ML UNITS SQ SCH ×3 (21:15→22:00)
[2018-02-23] MEDS ORDERED: INSULIN SLIDING SCALE (NOVOLOG) 1 VIAL SQ SCH ×3 (21:15→22:00)
[2018-02-23] MEDS: CHLORHEXIDINE GLUCONATE 4% CLEANSER FOR DECOLONIZATION TP SCH (21:24)
[2018-02-23] MEDS ORDERED: PATIENT'S OWN MEDICATION (NON-FORMULARY) (Losartan/Hydrochlorothiazide [Losartan-Hctz 100- PO SCH (22:00)
[2018-02-23] MEDS ORDERED: LOSARTAN POTASSIUM 50 MG TABLET (FP) PO SCH (22:00)
[2018-02-23] MEDS ORDERED: HYDROCHLOROTHIAZIDE 25 MG TABLET (FP) PO SCH (22:00)
[2018-02-23 23:11] LABS: ANION GAP 17 MMOL/L (8-16); BLOOD UREA NITROGEN 62 mg/dL (7-18); CALCIUM 7.6 mg/dL (8.5-10.1); CHLORIDE 101 mmol/L (98-107); CO2 16 mmol/L (21-32); CREATININE 2.6 mg/dL (0.55-1.3); SODIUM 134 mmol/L (136-145)
[2018-02-23 23:12] LABS: GLUCOSE,RANDOM 492 mg/dL (74-106); POTASSIUM 6.4 mmol/L (3.5-5.1)
[2018-02-23] MEDS ORDERED: SODIUM POLYSTYRENE SULFONATE 15 GM/60 ML BOTTLE PO ONE (23:24)
[2018-02-23] MEDS ORDERED: ALBUTEROL SO4 0.042% IH SOL 1.25 MG/3 ML VIAL.NEB NEB ONE (23:24)
[2018-02-23] MEDS ORDERED: LACTATED RINGERS SOLUTION 1,000 ML/1,000 ML INFUS.BAG IV SCH (23:30)
--- NOTE | 2018-02-23 23:37 | PN ---
Progress Note (short form) - Note Progress Note: On repeat BMP, patient noted to be hyperglycemic to 492, AG of 17, HCO3 of 16. Insulin gtt restarted. NPO. BGM Q2H. LR @ 125. K 6.4. ECG, Albuterol, and Kayexalate ordered Patient denies chest pain, palpitations, SOB, abdominal pain, N/V/D Will repeat BMP at 0300
[2018-02-24 04:02] LABS: ANION GAP 8 MMOL/L (8-16); BLOOD UREA NITROGEN 54 mg/dL (7-18); CALCIUM 7.8 mg/dL (8.5-10.1); CHLORIDE 107 mmol/L (98-107); CO2 26 mmol/L (21-32); CREATININE 2.3 mg/dL (0.55-1.3); GLUCOSE,RANDOM 266 mg/dL (74-106); POTASSIUM 3.9 mmol/L (3.5-5.1); SODIUM 141 mmol/L (136-145)
[2018-02-24] MEDS: SODIUM CHLORIDE 0.45%/POT 20 MEQ/1,000 ML INFUS.BAG IV SCH ×2 (04:35→15:21)
[2018-02-24] MEDS: INSULIN SLIDING SCALE (NOVOLOG) 1 VIAL SQ SCH ×4 (06:44→22:00)
[2018-02-24 06:52] LABS: BASO % 0.1 % (0-2.0); EOS % 0.2 % (0-4.5); HEMATOCRIT 34.4 % (35.4-49); LYMPH % 14.3 % (8-40); MCH 30.3 pg (25.7-33.7); MEAN CELL VOLUME 94.7 fl (80-96); MEAN PLT VOLUME 8.6 fl (7.5-11.1); MONO % 10.2 % (3.8-10.2); NEUT % 75.2 % (42.8-82.8); PLATELET COUNT 190 K/MM3 (134-434); RBC 3.64 M/mm3 (4.00-5.60); RDW 13.9 % (11.9-15.9); WHITE BLOOD COUNT 11.4 K/mm3 (4.0-10.0)
[2018-02-24 07:02] LABS: ALBUMIN 2.8 g/dl (3.4-5.0); ALK PHOS 99 U/L (45-117); ANION GAP 5 MMOL/L (8-16); BILIRUBIN,TOTAL 1.1 mg/dL (0.2-1); BLOOD UREA NITROGEN 50 mg/dL (7-18); CALCIUM 7.8 mg/dL (8.5-10.1); CHLORIDE 107 mmol/L (98-107); CO2 29 mmol/L (21-32); GLUCOSE,RANDOM 149 mg/dL (74-106); POTASSIUM 4.1 mmol/L (3.5-5.1); SGOT/AST 90 U/L (15-37); SGPT/ALT 60 U/L (13-61); SODIUM 141 mmol/L (136-145)
[2018-02-24] MEDS: LEVOTHYROXINE NA 25 MCG TABLET (FP) PO SCH (07:18)
--- NOTE | 2018-02-24 08:50 | PN ---
Progress Note (short form) - Note Progress Note: Renal follow up for KEETRHI Pt seen and examined in the ICU awake and alert no acute complaints denies any sob, cp, abd pain tolerating oral diet making urine on IVF Vital Signs Temperature 98.5 F 02/24/18 06:00 Pulse Rate 18 L 02/24/18 08:00 Respiratory Rate 82 H 02/24/18 08:00 Blood Pressure 135/70 02/24/18 08:00 O2 Sat by Pulse Oximetry (%) 100 02/23/18 21:00 Intake & Output 02/21/18 02/22/18 02/23/18 02/24/18 23:59 23:59 23:59 23:59 Intake Total 4415 363.5 Output Total 2100 1000 Balance 2315 -636.5 Weight 118.87 kg NAD awake and alert no LE edema CBC, BMP 02/24/18 05:30 02/24/18 05:30 Current Medications Aspirin (Asa -) 81 mg PO DAILY [facility] Last Admin: 02/23/18 10:26 Dose: 81 mg Atorvastatin Calcium (Lipitor -) 10 mg PO HS [facility] Last Admin: 02/23/18 21:09 Dose: 10 mg Chlorhexidine Gluconate (Hibiclens For Decolonization -) 1 applic TP HS [facility] Last Admin: 02/23/18 21:24 Dose: 1 applic Heparin Sodium (Porcine) (Heparin -) 5,000 unit SQ BID [facility] Last Admin: 02/23/18 21:09 Dose: 5,000 unit Potassium Chloride/Sodium Chloride (1/2ns+20meq Kcl) 20 meq in 1,000 mls @ 125 mls/hr IV ASDIR [facility] Last Admin: 02/24/18 04:35 Dose: 125 mls/hr Insulin Aspart (Novolog Vial Sliding Scale -) 1 vial SQ [facility]; Protocol Last Admin: 02/24/18 06:44 Dose: 2 units Levothyroxine Sodium (Synthroid -) 25 mcg PO DAILY@0700 [facility] Last Admin: 02/24/18 07:18 Dose: 25 mcg Mupirocin (Bactroban Ointment (For Decolonization) -) 1 applic NS BID [facility] Stop: 02/28/18 09:59 Last Admin: 02/23/18 21:09 Dose: 1 applic Pneumococcal 13-Valent Conj Vacc (Prevnar 13 Syringe -) 0.5 ml IM .ONCE ONE Stop: 02/24/18 10:01 67 year old gentleman with hx of DM Type 1 on insulin, hypothyroidism who presented with N/V and found to have DKA with Cr of 3.3 to 3.6. #KEERTHI vs. CKD #DKA #DM Type 1 on insulin #Hypertension #Pseudohyponatremia #Anemia #HLD Baseline Cr as of 10/2017 was 1.2, so pt with normal baseline renal function KEERTHI due to hypovolemia in setting of DKA + N/V Urine studies show low FeNa and non-significant proteinuria US showed normal size kidneys continue IVF for additional 24 hours would hold ARB until renal function at baseline ICU management of DKA Trip Sanders DO
[2018-02-24] MEDS ORDERED: PNEUMOC 13-VAL CONJ-DIP CRM/PF 0.5 ML DISP.SYRIN IM ONE (10:00)
[2018-02-24] MEDS: ASPIRIN 81 MG CHEWABLE TABLETS PO SCH (10:24)
[2018-02-24] MEDS: HEPARIN NA (PORCINE) 5,000 UNITS/ML 1ML VIAL SQ SCH ×2 (10:25→21:09)
[2018-02-24] MEDS: MUPIROCIN 2% TOPICAL OINTMENT FOR DECOLONIZATION NS SCH ×2 (11:10→21:09)
--- NOTE | 2018-02-24 11:59 | PN ---
Progress Note (short form) - Note Progress Note: Seen and examined in ICU AG closed was briefly on insulin drip o/n now off tolerating diet SCr cont to improve Active Medications Aspirin (Asa -) 81 mg PO DAILY [facility] Last Admin: 02/24/18 10:24 Dose: 81 mg Atorvastatin Calcium (Lipitor -) 10 mg PO HS [facility] Last Admin: 02/23/18 21:09 Dose: 10 mg Chlorhexidine Gluconate (Hibiclens For Decolonization -) 1 applic TP HS [facility] Last Admin: 02/23/18 21:24 Dose: 1 applic Heparin Sodium (Porcine) (Heparin -) 5,000 unit SQ BID [facility] Last Admin: 02/24/18 10:25 Dose: 5,000 unit Potassium Chloride/Sodium Chloride (1/2ns+20meq Kcl) 20 meq in 1,000 mls @ 125 mls/hr IV ASDIR [facility] Last Admin: 02/24/18 04:35 Dose: 125 mls/hr Insulin Aspart (Novolog Vial Sliding Scale -) 1 vial SQ [facility]; Protocol Last Admin: 02/24/18 11:42 Dose: 6 units Insulin Detemir (Levemir Vial) 35 units SQ [facility] Levothyroxine Sodium (Synthroid -) 25 mcg PO DAILY@0700 [facility] Last Admin: 02/24/18 07:18 Dose: 25 mcg Mupirocin (Bactroban Ointment (For Decolonization) -) 1 applic NS BID [facility] Stop: 02/28/18 09:59 Last Admin: 02/24/18 11:10 Dose: 1 applic Vital Signs Period Temp Pulse Resp BP Sys/Evans Pulse Ox Last 24 Hr 97.9 F-98.9 F 18-96 19-82 101-142/48-77 100 Intake & Output 02/21/18 02/22/18 02/23/18 02/24/18 23:59 23:59 23:59 23:59 Intake Total 4415 363.5 Output Total 2100 1000 Balance 2315 -636.5 Weight 118.87 kg General: awake, alert and cooperative CV: RRR Pulm: CTA Abd: SNTND Ext: WWP Neuro: grossly intact CBC, BMP 02/24/18 05:30 02/24/18 05:30 Assessment/Plan Resolving DKA / Hyperosmolar state IDDM HTN Hypothyroidism CKD likely due to DM R/O KEERTHI Renal following, no acute indication for iHD Insulin drip Insulin SQ w/ ISS f/u w/ Account Director re: Insulin pump Continue IVF resuscitation Monitor I & O VTE prophylaxis Replete electrolytes as indicated PO as tolerated ICU monitoring while on IV Insulin Dr Self Critical care time spent in reviewing chart, evaluating patient and formulating plan - 36 minutes
--- NOTE | 2018-02-24 16:06 | PN ---
Progress Note (short form) - Note Progress Note: patient seen and examined in ICU ambulating in room awake / alert / able to provide hx well informed regarding his disease. Intake & Output 02/21/18 02/22/18 02/23/18 02/24/18 23:59 23:59 23:59 23:59 Intake Total 4415 363.5 Output Total 2100 1000 Balance 2315 -636.5 Weight 262 lb 1 oz 262 lb Vital Signs Period Temp Pulse Resp BP Sys/Evans Pulse Ox Last 24 Hr 98 F-98.9 F 78-96 18-22 119-142/49-77 100 neck supple heart S1/S2 reg lungs clear bilt abd soft non tender ext no edema CBC, BMP 02/24/18 05:30 02/24/18 05:30 Active Medications Aspirin (Asa -) 81 mg PO DAILY [facility] Last Admin: 02/24/18 10:24 Dose: 81 mg Atorvastatin Calcium (Lipitor -) 10 mg PO HS [facility] Last Admin: 02/23/18 21:09 Dose: 10 mg Chlorhexidine Gluconate (Hibiclens For Decolonization -) 1 applic TP [facility] Last Admin: 02/23/18 21:24 Dose: 1 applic Heparin Sodium (Porcine) (Heparin -) 5,000 unit SQ BID [facility] Last Admin: 02/24/18 10:25 Dose: 5,000 unit Potassium Chloride/Sodium Chloride (1/2ns+20meq Kcl) 20 meq in 1,000 mls @ 125 mls/hr IV ASDIR [facility] Last Admin: 02/24/18 15:21 Dose: 125 mls/hr Insulin Aspart (Novolog Vial Sliding Scale -) 1 vial SQ [facility]; Protocol Last Admin: 02/24/18 11:42 Dose: 6 units Insulin Detemir (Levemir Vial) 35 units SQ [facility] Levothyroxine Sodium (Synthroid -) 25 mcg PO DAILY@0700 [facility] Last Admin: 02/24/18 07:18 Dose: 25 mcg Mupirocin (Bactroban Ointment (For Decolonization) -) 1 applic NS BID [facility] Stop: 02/28/18 09:59 Last Admin: 02/24/18 11:10 Dose: 1 applic # DKA off insulin drip started on basal insulin basal ins + sliding scale ada diet will need re assessment regarding insulin pump -- ? malfuntion follow up out patient with Dr Bedolla ( endo) # Acute renal failure KEERTHI - acute on chronic Cr improving -- continue to hydrate trend renal function and replace lytes as needed # HTN continue to monitor and treat as needed awaiting improvement of renal function #Hypothyroid continue current medication Patient ambulating in unit once off insulin drip able to leave monitored unit
[2018-02-24 18:39] LABS: ANION GAP 10 MMOL/L (8-16); BLOOD UREA NITROGEN 41 mg/dL (7-18); CALCIUM 8.4 mg/dL (8.5-10.1); CHLORIDE 107 mmol/L (98-107); CO2 25 mmol/L (21-32); CREATININE 1.8 mg/dL (0.55-1.3); GLUCOSE,RANDOM 183 mg/dL (74-106); POTASSIUM 4.5 mmol/L (3.5-5.1); SODIUM 142 mmol/L (136-145)
[2018-02-24] MEDS: ATORVASTATIN CA 10 MG TABLET (FP) PO SCH (21:10)
[2018-02-24] MEDS: CHLORHEXIDINE GLUCONATE 4% CLEANSER FOR DECOLONIZATION TP SCH (21:10)
[2018-02-24] MEDS ORDERED: INSULIN (LEVEMIR) 100 UNITS/ML UNITS SQ SCH (22:00)
[2018-02-25] MEDS: SODIUM CHLORIDE 0.45%/POT 20 MEQ/1,000 ML INFUS.BAG IV SCH (01:22)
[2018-02-25] MEDS: INSULIN SLIDING SCALE (NOVOLOG) 1 VIAL SQ SCH ×3 (06:30→17:07)
[2018-02-25] MEDS: LEVOTHYROXINE NA 25 MCG TABLET (FP) PO SCH (06:31)
[2018-02-25 06:52] LABS: HEMATOCRIT 36.9 % (35.4-49); HEMOGLOBIN 11.8 GM/dL (11.7-16.9); MCH 30.5 pg (25.7-33.7); MCHC 31.9 g/dl (32.0-35.9); MEAN CELL VOLUME 95.7 fl (80-96); MEAN PLT VOLUME 8.4 fl (7.5-11.1); PLATELET COUNT 165 K/MM3 (134-434); RBC 3.85 M/mm3 (4.00-5.60); RDW 14.5 % (11.9-15.9); WHITE BLOOD COUNT 3.7 K/mm3 (4.0-10.0)
[2018-02-25 06:58] LABS: ANION GAP 5 MMOL/L (8-16); BLOOD UREA NITROGEN 28 mg/dL (7-18); CALCIUM 8.1 mg/dL (8.5-10.1); CHLORIDE 106 mmol/L (98-107); CO2 31 mmol/L (21-32); CREATININE 1.3 mg/dL (0.55-1.3); GLUCOSE,RANDOM 141 mg/dL (74-106); MAGNESIUM 2.3 mg/dL (1.8-2.4); PHOSPHOROUS 2.3 mg/dL (2.5-4.9); POTASSIUM 4.7 mmol/L (3.5-5.1); SODIUM 142 mmol/L (136-145)
--- NOTE | 2018-02-25 07:27 | PN ---
Progress Note (short form) - Note Progress Note: Seen and examined in the ICU AG stable on insulin sq ambulating around room tolerating diet, c/o mild abdominal discomfort SCr improved awaiting floor bed Active Medications Aspirin (Asa -) 81 mg PO DAILY [facility] Last Admin: 02/24/18 10:24 Dose: 81 mg Atorvastatin Calcium (Lipitor -) 10 mg PO HS [facility] Last Admin: 02/24/18 21:10 Dose: 10 mg Chlorhexidine Gluconate (Hibiclens For Decolonization -) 1 applic TP HS [facility] Last Admin: 02/24/18 21:10 Dose: 1 applic Heparin Sodium (Porcine) (Heparin -) 5,000 unit SQ BID [facility] Last Admin: 02/24/18 21:09 Dose: 5,000 unit Potassium Chloride/Sodium Chloride (1/2ns+20meq Kcl) 20 meq in 1,000 mls @ 125 mls/hr IV ASDIR [facility] Last Admin: 02/25/18 01:22 Dose: 125 mls/hr Insulin Aspart (Novolog Vial Sliding Scale -) 1 vial SQ [facility]; Protocol Last Admin: 02/25/18 06:30 Dose: Not Given Insulin Detemir (Levemir Vial) 35 units SQ [facility] Last Admin: 02/24/18 22:00 Dose: 35 units Levothyroxine Sodium (Synthroid -) 25 mcg PO DAILY@0700 [facility] Last Admin: 02/25/18 06:31 Dose: 25 mcg Mupirocin (Bactroban Ointment (For Decolonization) -) 1 applic NS BID [facility] Stop: 02/28/18 09:59 Last Admin: 02/24/18 21:09 Dose: 1 applic Vital Signs Period Temp Pulse Resp BP Sys/Evans Pulse Ox Last 24 Hr 98 F-98 F 66-82 - 111-162/69-80 100 Intake & Output 02/22/18 02/23/18 02/24/18 02/25/18 23:59 23:59 23:59 23:59 Intake Total 4415 2503.5 945 Output Total 2100 1000 Balance 2315 1503.5 945 Weight 118.87 kg 118.841 kg General: awake, alert and cooperative CV: RRR Pulm: CTA Abd: SNTND, mild discomfort but non tender Ext: WWP Neuro: grossly intact CBC, BMP 02/25/18 05:30 02/25/18 05:30 Assessment/Plan Resolving DKA / Hyperosmolar state IDDM HTN Hypothyroidism CKD likely due to DM R/O KEERTHI Renal following, SCr improving Insulin SQ w/ ISS f/u w/ Spanish Speaking Nanny re: Insulin pump d/c IVF now that taking pos Monitor I & O VTE prophylaxis Replete electrolytes as indicated PO as tolerated Stable for floor transfer [place] ACNP CCT: 35m
--- NOTE | 2018-02-25 08:42 | EKG ---
Test Reason : Blood Pressure : / mmHG Vent. Rate : 094 BPM Atrial Rate : 094 BPM P-R Int : 144 ms QRS Dur : 096 ms QT Int : 390 ms P-R-T Axes : 055 039 062 degrees QTc Int : 487 ms NORMAL SINUS RHYTHM WITH SINUS ARRHYTHMIA PROLONGED QT ABNORMAL ECG WHEN COMPARED WITH ECG OF 22-FEB-2018 23:22, RIGHT BUNDLE BRANCH BLOCK IS NO LONGER PRESENT Confirmed by PJ CRAIG, JAY JAY ([id number]) on 02/25/2018 8:42:27 AM Referred By: CABRERA Confirmed By:JAY JAY OLIVA MD
--- NOTE | 2018-02-25 08:59 | PN ---
Progress Note (short form) - Note Progress Note: Renal follow up for KEERTHI Pt seen and examined in the ICU awake and alert complained of some abd pain that started last night Vital Signs Temperature 98 F 02/24/18 16:00 Pulse Rate 66 02/25/18 04:00 Respiratory Rate 18 02/25/18 04:00 Blood Pressure 162/80 02/25/18 04:00 O2 Sat by Pulse Oximetry (%) 100 02/24/18 20:00 Intake & Output 02/22/18 02/23/18 02/24/18 02/25/18 23:59 23:59 23:59 23:59 Intake Total 4415 2503.5 945 Output Total 2100 1000 Balance 2315 1503.5 945 Weight 118.87 kg 118.841 kg NAD awake and alert no LE edema CBC, BMP 02/25/18 05:30 02/25/18 05:30 Current Medications Aspirin (Asa -) 81 mg PO DAILY [facility] Last Admin: 02/24/18 10:24 Dose: 81 mg Atorvastatin Calcium (Lipitor -) 10 mg PO HS [facility] Last Admin: 02/24/18 21:10 Dose: 10 mg Chlorhexidine Gluconate (Hibiclens For Decolonization -) 1 applic TP HS [facility] Last Admin: 02/24/18 21:10 Dose: 1 applic Heparin Sodium (Porcine) (Heparin -) 5,000 unit SQ BID [facility] Last Admin: 02/24/18 21:09 Dose: 5,000 unit Potassium Chloride/Sodium Chloride (1/2ns+20meq Kcl) 20 meq in 1,000 mls @ 125 mls/hr IV ASDIR [facility] Last Admin: 02/25/18 01:22 Dose: 125 mls/hr Insulin Aspart (Novolog Vial Sliding Scale -) 1 vial SQ [facility]; Protocol Last Admin: 02/25/18 06:30 Dose: Not Given Insulin Detemir (Levemir Vial) 35 units SQ [facility] Last Admin: 02/24/18 22:00 Dose: 35 units Levothyroxine Sodium (Synthroid -) 25 mcg PO DAILY@0700 [facility] Last Admin: 02/25/18 06:31 Dose: 25 mcg Mupirocin (Bactroban Ointment (For Decolonization) -) 1 applic NS BID [facility] Stop: 02/28/18 09:59 Last Admin: 02/24/18 21:09 Dose: 1 applic 67 year old gentleman with hx of DM Type 1 on insulin, hypothyroidism who presented with N/V and found to have DKA with Cr of 3.3 to 3.6. #KEERTHI secondary to renal hypoprofusion in setting of DKA/Hypovolemia #DKA #DM Type 1 on insulin #Hypertension #Pseudohyponatremia #Anemia #HLD Baseline Cr as of 10/2017 was 1.2, so pt with normal baseline renal function Renal function now improved to near normal Urine studies show low FeNa and non-significant proteinuria US showed normal size kidneys can trend renal function off IVF if renal function remains table can restart ARB awaiting transfer out of ICU Trip Sanders DO
[2018-02-25] MEDS: MUPIROCIN 2% TOPICAL OINTMENT FOR DECOLONIZATION NS SCH (09:42)
[2018-02-25] MEDS: HEPARIN NA (PORCINE) 5,000 UNITS/ML 1ML VIAL SQ SCH (09:42)
[2018-02-25] MEDS: ASPIRIN 81 MG CHEWABLE TABLETS PO SCH (09:42)
--- NOTE | 2018-02-25 14:20 | PN ---
Progress Note (short form) - Note Progress Note: patient seen and examined in ICU well informed regarding his disease. Intake & Output 02/22/18 02/23/18 02/24/18 02/25/18 23:59 23:59 23:59 23:59 Intake Total 4415 2503.5 1125 Output Total 2100 1000 Balance 2315 1503.5 1125 Weight 262 lb 1 oz 262 lb Vital Signs Period Temp Pulse Resp BP Sys/Evans Pulse Ox Last 24 Hr 98 F-99 F 66-77 18-22 111-162/69-94 100-100 neck supple heart S1/S2 reg lungs clear bilt abd soft non tender ext no edema CBC, BMP 02/25/18 05:30 02/25/18 05:30 CBC, BMP 02/24/18 05:30 02/24/18 05:30 Active Medications Aspirin (Asa -) 81 mg PO DAILY [facility] Last Admin: 02/25/18 09:42 Dose: 81 mg Atorvastatin Calcium (Lipitor -) 10 mg PO HS [facility] Last Admin: 02/24/18 21:10 Dose: 10 mg Chlorhexidine Gluconate (Hibiclens For Decolonization -) 1 applic TP HS [facility] Last Admin: 02/24/18 21:10 Dose: 1 applic Heparin Sodium (Porcine) (Heparin -) 5,000 unit SQ BID [facility] Last Admin: 02/25/18 09:42 Dose: 5,000 unit Potassium Chloride/Sodium Chloride (1/2ns+20meq Kcl) 20 meq in 1,000 mls @ 125 mls/hr IV ASDIR [facility] Last Admin: 02/25/18 01:22 Dose: 125 mls/hr Insulin Aspart (Novolog Vial Sliding Scale -) 1 vial SQ [facility]; Protocol Last Admin: 02/25/18 11:29 Dose: 6 units Insulin Detemir (Levemir Vial) 35 units SQ [facility] Last Admin: 02/24/18 22:00 Dose: 35 units Levothyroxine Sodium (Synthroid -) 25 mcg PO DAILY@0700 [facility] Last Admin: 02/25/18 06:31 Dose: 25 mcg Mupirocin (Bactroban Ointment (For Decolonization) -) 1 applic NS BID [facility] Stop: 02/28/18 09:59 Last Admin: 02/25/18 09:42 Dose: 1 applic # DKA now resolved off insulin drip started on basal insulin basal ins + sliding scale ada diet will need re assessment regarding insulin pump -- ? malfuntion follow up out patient with Dr Bedolla ( endo) # Acute renal failure now back to baseline KEERTHI - acute on chronic # HTN continue home meds #Hypothyroid continue current medication Patient ambulating in unit once off insulin drip able to leave monitored unit
--- NOTE | 2018-02-25 14:22 | DS ---
Physical Examination Vital Signs: Vital Signs Temperature 99 F 02/25/18 09:00 Pulse Rate 67 02/25/18 13:00 Respiratory Rate 22 H 02/25/18 13:00 Blood Pressure 162/94 02/25/18 13:00 O2 Sat by Pulse Oximetry (%) 100 02/25/18 09:00 Findings/Remarks: 67 yo M h/o IDDM type I on insulin pump w/ humulin, HTN, hypothyroidism on synthroid p/w n/v x 2 days and uncontrolled blood sugar. Patient said his pump showed that his blood sugar was in the 500s, he gave himself 10 units but it came back up to 600, for which he gave himself another 10 units. He reported that the pump is planted 6 months ago and it's working fine with proper amount of insulin doses equipped. He's vomited 6 times day of admission and it was NBNB. Denies fever, chills, cough, urinary or bowel sx. Patienrt admitted to ICU for fluid resuscitation and insulin drip. # DKA now resolved off insulin drip started on basal insulin basal ins + sliding scale -- will trial pump while in hosp ada diet will need re assessment regarding insulin pump -- ? malfuntion follow up out patient with Dr Bedolla ( endo) # Acute renal failure now back to baseline KEERTHI - acute on chronic Cr 1.3 # HTN continue home meds #Hypothyroid continue current medication Constitutional: Yes: Well Nourished, No Distress, Calm Eyes: Yes: Conjunctiva Clear, EOM Intact HENT: Yes: Atraumatic, Normocephalic Neck: Yes: Supple, Trachea Midline Cardiovascular: Yes: Regular Rate and Rhythm Respiratory: Yes: Regular, CTA Bilaterally Gastrointestinal: Yes: Normal Bowel Sounds, Soft ...Rectal Exam: Yes: Deferred Renal/: Yes: WNL Breast(s): Yes: WNL Musculoskeletal: Yes: WNL Extremities: Yes: WNL. No: Cold, Deformity, Erythema Edema: No Peripheral Pulses WNL: Yes Integumentary: Yes: WNL Neurological: Yes: WNL, Alert, Oriented ...Motor Strength: WNL Psychiatric: Yes: WNL Labs: CBC, BMP 02/25/18 05:30 02/25/18 05:30 Discharge Summary Reason For Visit: DIABETIC KETOACIDOSIS Current Active Problems DKA (diabetic ketoacidoses) (Acute) Condition: Improved - Instructions Referrals: Moisés Guo [Primary Care Provider] - Disposition: HOME - Home Medications Comprehensive Discharge Medication List: Ambulatory Orders Aspirin 81 mg PO DAILY 06/27/11 Insulin (LOG) Aspart [NovoLOG] 81 unit SQ AM 06/27/11 Insulin Detemir [Levemir] 36 unit SQ HS 06/27/11 Levothyroxine Sodium [Synthroid] 25 mcg PO DAILY 06/27/11 Losartan/Hydrochlorothiazide [Losartan-Hctz 100-25 mg Tab] 1 each PO HS Simvastatin 20 mg PO HS 02/22/18
[2018-02-25 15:36] VITALS: BP 146/82; PULSE 73; TEMP 98.9
== END 2018-02-25 16:54 | disposition home or self-care (01) | DRG 638 ==
LOC: JER 21:09 → JICU 23:08
PROVIDERS: ADMIT Family Medicine; ATTEND Family Medicine
DX: E10.10 Type 1 diabetes mellitus with ketoacidosis without coma (principal); E87.1 Hypo-osmolality and hyponatremia; N17.9 Acute kidney failure, unspecified; E10.22 Type 1 diabetes mellitus with diabetic chronic kidney disease; I12.9 Hypertensive chronic kidney disease with stage 1 through stage 4 chronic kidney disease, or unspecified chronic kidney disease; N18.9 Chronic kidney disease, unspecified; E03.9 Hypothyroidism, unspecified; Z79.4 Long term (current) use of insulin; E66.9 Obesity, unspecified; D64.9 Anemia, unspecified; E78.5 Hyperlipidemia, unspecified; E86.1 Hypovolemia; Z68.33 Body mass index [BMI] 33.0-33.9, adult
CPT/HCPCS: 36415; 36600; 71045-TC-FY; 76775-TC; 80048; 80053; 81003; 82009; 82570; 82803; 82962; 83036; 83690; 83735; 84100; 84156; 84300; 85025; 85027; 90670; 93005; 93010; 94640; 99285-25; J1644; J3480; J7030

== ENCOUNTER 2019-08-16 08:53 | Inpatient (IN) | payer OTHER, BC ==
[2019-08-16 09:59] LABS: BASO % 0.1 % (0-2.0); EOS % 0.1 % (0-4.5); HEMATOCRIT 38.3 % (35.4-49); HEMOGLOBIN 11.9 GM/dL (11.7-16.9); LYMPH % 8.9 % (8-40); MCH 31.5 pg (25.7-33.7); MEAN CELL VOLUME 101.6 fl (80-96); MONO % 10.6 % (3.8-10.2); NEUT % 80.3 % (42.8-82.8); PLATELET COUNT 203 K/MM3 (134-434); RBC 3.77 M/mm3 (4.00-5.60); RDW 15.1 % (11.9-15.9); WHITE BLOOD COUNT 10.3 K/mm3 (4.0-10.0)
--- NOTE | 2019-08-16 10:04 | PDOC ---
History of Present Illness - General Chief Complaint: Blood Sugar Problem Stated Complaint: high blood sugar Time Seen by Provider: 08/16/19 09:09 - History of Present Illness Initial Comments: 68 yo male with PMH of DM coming in due to high blood sugar. Pt explains he had similar situation early this year where blood sugar was high and had a 3 day stay in [facility] ICU. Today pt explains that yesterday at 6:00pm his blood sugar was high at 323. He decided not to eat that night and rechecked his blood sugar at 5 oclock and it was 549. Pt explains he then took 10 units of humalog insulin, but blood sugar continued to increase so decided to come in. Pt explains he does have insulin pump and he changes his insulin every 3 days with his last change 2 days ago. Pt also explains he checked his insulin and vial and was not . Pt has associated sxs of one episode of nonbloody nonbilious emesis, generalized weakness, feeling dry, and had frequent urination for the past two days where he was urinating every 3 hours. Pt explains that he had a temperature in the morning of 101. Pt denies any chills, chest pain, sob, current nausea, burning in urination, or change in bowel movements. 08/16/19 09:58 08/16/19 10:24 08/16/19 14:00 Timing/Duration: getting worse Severity: severe Modifying Factors: improves with: medication (took insulin did not help ) Associated Symptoms: reports: weakness (generalized weakness ) Past History - Medical History Allergies/Adverse Reactions: Allergies Allergy/AdvReac Type Severity Reaction Status Date / Time No Known Allergies Allergy Verified 08/16/19 08:58 Home Medications: Ambulatory Orders Aspirin 81 mg PO DAILY 06/27/11 Insulin (LOG) Aspart [NovoLOG -] 81 unit SQ AM 06/27/11 Insulin Detemir [Levemir Flexpen] 36 unit SQ HS 06/27/11 Levothyroxine Sodium [Synthroid] 25 mcg PO DAILY 06/27/11 Losartan/Hydrochlorothiazide [Losartan-Hctz 100-25 mg Tab] 1 each PO HS 02/22/18 Simvastatin 20 mg PO HS 02/22/18 COPD: No Diabetes: Yes (IDDM) HTN: Yes Hypercholesterolemia: Yes Thyroid Disease: Yes (hypothyroidism) - Psycho-Social/Smoking History Smoking Status: No Smoking History: Never smoked Have you smoked in the past 12 months: No Number of Cigarettes Smoked Daily: 0 - Substance Abuse Hx (Audit-C & DAST Scrn) How often the patient has a drink containing alcohol: Never How often the patient has six or more drinks on one occasion: Never Score: In Men: 4 or > Positive; In Women: 3 or > Positive: 0 Screen Result (Pos requires Nsg. Audit-10AR): Negative In the last yr the pt used illegal drug/Rx for NonMed reason: No Score: Yes response is considered Positive: 0 Screen Result (Positive result requires Nsg. DAST-10): Negative Pt denies any drug use 08/16/19 10:06 Review of Systems - Review of Systems Comments:: CONSTITUTIONAL: Absent: chills, diaphoresis Positive: Generalized weakness HEENT: Absent: rhinorrhea, nasal congestion, visual Changes CARDIOVASCULAR: Absent: chest pain, syncope, palpitations, irregular heart rate, lightheadedness, peripheral edema RESPIRATORY: Absent: cough, shortness of breath GASTROINTESTINAL: Absent: abdominal pain, abdominal distension Positive: one episode of emesis GENITOURINARY: Absent: dysuria, Positive: urinary frequency MUSCULOSKELETAL: Absent: myalgia, arthralgia, joint swelling SKIN: Absent: rash, itching, pallor NEUROLOGIC: Absent: headache, focal weakness or paresthesias, dizziness, unsteady gait, seizure, mental status changes, bladder or bowel incontinence PSYCHIATRIC: Absent: anxiety, depression, suicidal or homicidal ideation 08/16/19 10:06 08/17/19 12:08 Constitutional: Yes: Chills (denies ), Fever (Pt denies any current fever), Weakness (does admit to generalized weakness ) HEENTM: Yes: Eye Pain (denies), Blurred Vision (denies ) Respiratory: Yes: Cough (denies cough ), Shortness of Breath (denies SOB ) Cardiac (ROS): Yes: Chest Pain (Denies CP ), Palpitations (Denies palpitations ) ABD/GI: Yes: Vomiting : Yes: Burning (denies ), Frequency (Pt does have increased urination for the past two days ) Musculoskeletal: Yes: Muscle Pain (denies muscle pain ) Integumentary: Yes: Dryness (Pt says he does feel dry ) Neurological: Yes: Headache (Denies headache ), Numbness (denies numbness ) Psychiatric: Yes: Depression (denies ) *Physical Exam - Vital Signs Last Vital Signs Temp Pulse Resp BP Pulse Ox 98.7 F 111 H 16 141/52 L 99 08/16/19 08:59 08/16/19 08:59 08/16/19 08:59 08/16/19 08:59 08/16/19 08:59 - Physical Exam General: pt appears in no acute distress HEENT: NCAT; EOMI. Dry oropharynx CV: Normal S1 S2. Regular rate and rhythm. Pulm. CTA bilaterally no wheezes rales or rhonchi Abd: Soft nondistended non tender Ext: Normal ROM in all four extremities. No gross deformities Skin: warm dry no rash Neuro: No FND Psych:cooperative good eye contact. Appropriate mood and affect. 08/16/19 10:26 08/17/19 12:12 General Appearance: Yes: Nourished ED Treatment Course - LABORATORY CBC & Chemistry Diagram: 08/17/19 07:01 08/17/19 07:01 Medical Decision Making - Medical Decision Making 68 yo M with PMH of type 1 DM coming in with high blood sugar. Pt had prior history of similar occurrence earlier in the year where he had a 3 day stay in ICU. Pt has insulin pump but still has high glucose. Pt is suspected to have DKA/HHS. Labs were drawn and liter NS was given. Labs showed an increase of BG in 800s and K 5.1. Pt was then given .1 units/kg/hr of insulin drip and will reassess after. 08/16/19 11:11 08/16/19 16:01 Pt has elevated anion gap ICU consulted and was accepted by ICU for DKA and glucose monitoring Discharge - Discharge Information Problems reviewed: Yes Clinical Impression/Diagnosis: DKA (diabetic ketoacidoses) Qualifiers: Diabetes mellitus type: type 1 Diabetes mellitus complication detail: without coma Qualified Code(s): E10.10 - Type 1 diabetes mellitus with ketoacidosis without coma Condition: Guarded - Admission Yes - Follow up/Referral - Patient Discharge Instructions - Post Discharge Activity
[2019-08-16 10:08] LABS: INR 1.18 (0.83-1.09)
[2019-08-16] MEDS ORDERED: SODIUM CHLORIDE 0.9% 500 ML INFUS.BAG IV ONE ×3 (10:15→11:02)
[2019-08-16 10:20] LABS: VENOUS BASE EXCESS -13.2 mmol/L (-2-2); VENOUS O2 SATURATION 90.9 % (70-80); VENOUS PCO2 33.5 mmHg (38-52); VENOUS PH 7.22 (7.310-7.410)
[2019-08-16 10:30] LABS: BILIRUBIN,TOTAL 1.2 mg/dL (0.2-1); BLOOD UREA NITROGEN 54.3 mg/dL (7-18); CREATININE 2.9 mg/dL (0.55-1.3); POTASSIUM 5.1 mmol/L (3.5-5.1); TOT PROT 7.4 g/dl (6.4-8.2)
[2019-08-16] MEDS ORDERED: INSULIN REGULAR 100 UNITS in SODIUM CHLORIDE 99 ML IVPB SCH (11:15)
--- NOTE | 2019-08-16 11:31 | PDOC ---
Documentation entered by Fco Naranjo SCRIBE, acting as scribe for Eveline Leon MD. Eveline Leon MD: This documentation has been prepared by the Marcella ramires Xhesika, SCRIBE, under my direction and personally reviewed by me in its entirety. I confirm that the documentation accurately reflects all work, treatment, procedures, and medical decision making performed by me. Attending Attestation - Resident Resident Name: Cayden Martinez - ED Attending Attestation I have performed the following: I have examined & evaluated the patient, The case was reviewed & discussed with the resident, I agree w/resident's findings & plan, Exceptions are as noted - HPI HPI: 08/16/19 09:22 The patient is a 68 y/o M with a PMH of Type 1 DM (on insulin pump; gets Humulin), HTN, hypothyroidism who presents to the ED elevated blood glucose. Pt states last night his BG was >300, rechecked his BG this morning and it was >500,took 10 units of insulin, and BG was still increasing prompting his arrival to the ED. Pt states the last time he changed his insulin pump was 2 days ago. Pt reports associated nbnb emesis, dizziness and generalized weakness. Pt notes he had similar episode on 02/2019 and was admitted to [facility] ICU. The patient denies chest pain, shortness of breath, fever, chills, cough, nausea, vomiting, diarrhea and constipation. Denies dysuria, frequency, urgency and hematuria. Allergies: NKDA PCP:Dr. Wiseman - Physicial Exam PE: GENERAL: Awake, alert, and fully oriented, in no acute distress HEAD: No signs of trauma EYES: PERRLA, EOMI, sclera anicteric, conjunctiva clear ENT: Auricles normal inspection, hearing grossly normal, nares patent, oropharynx clear without exudates. Dry mucosa NECK: Normal ROM, supple, no lymphadenopathy, JVD, or masses LUNGS: Breath sounds equal, clear to auscultation bilaterally. No wheezes, and no crackles HEART: Regular rate and rhythm, normal S1 and S2, no murmurs, rubs or gallops ABDOMEN: Soft, nontender, normoactive bowel sounds. No guarding, no rebound. No masses. Insulin pump to R mid-abdomen, no rash to the site EXTREMITIES: Normal range of motion, no edema. No clubbing or cyanosis. No cords, erythema, or tenderness NEUROLOGICAL: Cranial nerves II through XII grossly intact. Normal speech, normal gait. Motor and sensation intact SKIN: Warm, dry, normal turgor, no rashes or lesions noted. - Medical Decision Making Pt with DKA- unclear etiology, may be due to pump failure vs bad batch of insulin vs possible compliance problem. Will give fluids, insulin drip, plan for ICU admission. Discharge - Discharge Information Problems reviewed: Yes Clinical Impression/Diagnosis: DKA (diabetic ketoacidoses) Qualifiers: Diabetes mellitus type: type 1 Diabetes mellitus complication detail: without coma Qualified Code(s): E10.10 - Type 1 diabetes mellitus with ketoacidosis without coma - Follow up/Referral Referrals: Moisés Guo [Primary Care Provider] - - Patient Discharge Instructions - Post Discharge Activity
[2019-08-16 13:18] LABS: URINE APPEARANCE CLEAR; URINE BILIRUBIN NEGATIVE (NEGATIVE); URINE COLOR YELLOW; URINE GLUCOSE (UA) 3+ (NEGATIVE); URINE KETONE TRACE (NEGATIVE); URINE LEUK ESTERASE NEGATIVE (NEGATIVE); URINE NITRITE NEGATIVE (NEGATIVE); URINE PROTEIN NEGATIVE (NEGATIVE); URINE UROBILINOGEN 0.2 mg/dL (0.2-1.0)
[2019-08-16 13:29] LABS: VENOUS BASE EXCESS -15.8 mmol/L (-2-2); VENOUS O2 SATURATION 57.7 % (70-80); VENOUS PCO2 39.9 mmHg (38-52)
[2019-08-16 13:31] LABS: VENOUS PH 7.125 (7.310-7.410)
--- NOTE | 2019-08-16 14:10 | HP ---
Admitting History and Physical - Admission Chief Complaint: Acute exacerbation of insulin dependent diabetes mellitus, po lydypsia, nausea and vomiting. History of Present Illness: This 68 yr old w/m with PMH of CKD and hypothyroidism, HTN admitted via ER with an acute exacerbation of diabetic ketoacidosis, uncontrolled insulin dependent diabetes mellitus, and acute dehydration. History Source: Patient, Medical Record Limitations to Obtaining History: No Limitations - Past Medical History FUR JOINER: No: Alzheimer's, CVA, Dementia, Migraine, Multiple Sclerosis, Peripheral Neuropathy, Parkinson's, Seizure, Syncope, TIA, Vertigo, Other Cardiovascular: Yes: HTN Pulmonary: No: Asthma, Bronchitis, Cancer, COPD, O2 Dependent, Pneumonia, Previously Intubated, Pulmonary Embolus, Pulmonary Fibrosis, Sleep Apnea, Other Gastrointestinal: No: Ascites, Cancer, Constipation, Crohn's Disease, Diverticulitis, Diverticulosis, Esophageal Varices, Gastritis, GERD, GI Bleed, Hemorrhoids, Hiatal Hernia, Inflamatory Bowel Disease, Irritable Bowel Disease, Pancreatitis, Peptic Ulcer Disease, Ulcerative Colitis, Other Hepatobiliary: No: Cirrhosis, Cholelithiasis, Cholecystitis, Choledocholithiasis, Hepatitis A, Hepatitis B, Hepatitis C, Other Renal/: No: Renal Failure, Renal Inusuff, BPH, Cancer, Hematuria, Hemodialysis, Neurogenic Bladder, Renal Calculi, UTI, Other Heme/Onc: No: Anemia, B12 Deficiency, Bleeding Disorder, Cancer, Current Chemotherapy, Current Radiation Therapy, Hemochromatosis, Hypercoaguable State, Myeloproliferative Synd, Sickle Cell Disease, Sickle Cell Trait, Thrombocytopenia, Other Infectious Disease: No: AIDS, C-Diff, Herpes Zoster, HIV, MRSA, STD's, Tuberculosis, VREF, Other Psych: No: Addictions, Anxiety, Bipolar, Depression, Panic, Psychosis, Schizophrenia, Other Musculoskeletal: No: Bursitis, Chronic low back pain, Hemiparesis, Hemiplegia, Osteoarthritis, Paraplegia, Other Rheumatology: No: Fibromyalgia, Gout, Lupus, Rheumatoid Arthritis, Sarcoidosis, Vasculitis, Other ENT: No: Allergic Rhinitis, Sinusitis, Other Endocrine: Yes: Diabetes Mellitus, Hypothyroidism Dermatology: No: Basal Cell, Cellulitis, Eczema, Melanoma, Psoriasis, Squamous Cell, Other - Past Surgical History Past Surgical History: Yes: None - Smoking History Smoking history: Never smoked Have you smoked in the past 12 months: No Aproximately how many cigarettes per day: 0 - Alcohol/Substance Use Hx Alcohol Use: No - Social History ADL: Independent Home Medications - Allergies Allergies/Adverse Reactions: Allergies Allergy/AdvReac Type Severity Reaction Status Date / Time No Known Allergies Allergy Verified 08/16/19 08:58 - Home Medications Home Medications: Ambulatory Orders Aspirin 81 mg PO DAILY 06/27/11 Insulin (LOG) Aspart [NovoLOG -] 81 unit SQ AM 06/27/11 Insulin Detemir [Levemir Flexpen] 36 unit SQ HS 06/27/11 Levothyroxine Sodium [Synthroid] 25 mcg PO DAILY 06/27/11 Losartan/Hydrochlorothiazide [Losartan-Hctz 100-25 mg Tab] 1 each PO HS 02/22/18 Simvastatin 20 mg PO HS 02/22/18 Review of Systems - Review of Systems Constitutional: reports: No Symptoms Eyes: reports: No Symptoms HENT: reports: Other (dry throat) Neck: reports: No Symptoms Cardiovascular: reports: No Symptoms Respiratory: reports: No Symptoms Gastrointestinal: reports: Vomiting Genitourinary: reports: No Symptoms Breasts: reports: No Symptoms Reported Musculoskeletal: reports: Muscle Weakness Integumentary: reports: No Symptoms Neurological: reports: No Symptoms Endocrine: reports: No Symptoms Hematology/Lymphatic: reports: No Symptoms Psychiatric: reports: No Symptoms Physical Examination Vital Signs: Vital Signs Temperature 98.7 F 08/16/19 08:59 Pulse Rate 111 H 08/16/19 08:59 Respiratory Rate 16 08/16/19 08:59 Blood Pressure 141/52 L 08/16/19 08:59 O2 Sat by Pulse Oximetry (%) 99 08/16/19 08:59 Constitutional: Yes: Well Nourished, No Distress, Calm Eyes: Yes: Conjunctiva Clear, EOM Intact HENT: Yes: Atraumatic, Normocephalic Neck: Yes: Supple, Trachea Midline Cardiovascular: Yes: Regular Rate and Rhythm Respiratory: Yes: Regular, CTA Bilaterally Gastrointestinal: Yes: Normal Bowel Sounds, Soft, Abdomen, Obese ...Rectal Exam: Yes: Deferred Renal/: Yes: WNL Breast(s): Yes: WNL Musculoskeletal: Yes: Muscle Weakness Extremities: Yes: WNL Edema: No Peripheral Pulses WNL: Yes Integumentary: Yes: WNL Neurological: Yes: WNL ...Motor Strength: LUE (generalized muscle weakness of all extremities) Psychiatric: Yes: WNL Labs: CBC, BMP 08/16/19 09:10 Problem List - Problems (1) Dehydration Code(s): E86.0 - DEHYDRATION (2) Insulin dependent diabetes mellitus Code(s): PIM8586 - (3) Nausea & vomiting Code(s): R11.2 - NAUSEA WITH VOMITING, UNSPECIFIED (4) Muscle weakness (generalized) Code(s): M62.81 - MUSCLE WEAKNESS (GENERALIZED) (5) DKA (diabetic ketoacidoses) Code(s): E13.10 - OTH DIABETES MELLITUS WITH KETOACIDOSIS WITHOUT COMA Qualifiers: Diabetes mellitus type: type 1 Diabetes mellitus complication detail: without coma Qualified Code(s): E10.10 - Type 1 diabetes mellitus with ketoacidosis without coma Assessment/Plan Assessment/plan: acute exacerbation of insulin dependent diabetes mellitus, acute exacerbation of diabetic ketoacidosis, acute prerenal azotemia, acute hype rkalemia, acute hyponatremia, acute lactic acidosis, acute dehydration, acute generalized muscle weakness, HTN, hypothyroidism, CKD; IV fluids, IV regular insulin drip, transfer to ICU, DVT/GI prophylaxis, monitor venous ph and bmp every 2 hours until blood sugar is 200 or less.
[2019-08-16 14:12] LABS: BLOOD UREA NITROGEN 58.7 mg/dL (7-18); CALCIUM 8.3 mg/dL (8.5-10.1); POTASSIUM 5.3 mmol/L (3.5-5.1)
[2019-08-16] MEDS ORDERED: SODIUM CHLORIDE 1,000 ML IV SCH (14:45)
--- NOTE | 2019-08-16 14:55 | PN ---
Teaching Attending Note Name of Resident: Laila Mcneill ATTENDING PHYSICIAN STATEMENT I saw and evaluated the patient. I reviewed the resident's note and discussed the case with the resident. I agree with the resident's findings and plan as documented. SUBJECTIVE: 68 M, DM on an Insulin pump (taken care of by Dr Patel), CKD, hypothyroi dism, and HTN. Reports recent admission for hyperglycemia. He does report that his pump was recently checked and is only 6 months old. Admitted via the ER due to DKA and dehydration. He reports strict compliance with his Insulin regimen. He does report intermittent episodes of hypogkycemia. No CP or SOB. No fever or chills. No COVID19 exposure. Intake & Output 08/13/19 08/14/19 08/15/19 08/16/19 23:59 23:59 23:59 23:59 Weight 260 lb Last Vital Signs Temp Pulse Resp BP Pulse Ox 98.7 F 111 H 16 141/52 L 99 08/16/19 08:59 08/16/19 08:59 08/16/19 08:59 08/16/19 08:59 08/16/19 08:59 Active Medications Atorvastatin Calcium (Lipitor -) 10 mg PO HS BRENT Enoxaparin Sodium (Lovenox -) 40 mg SQ DAILY BRENT HCTZ/Losartan Potassium (Hyzaar -) 2 tab PO DAILY [facility]ENT Insulin Human Regular 100 (units/ Sodium Chloride) 100 mls @ 11.793 mls/hr IVPB TITR BRENT; Protocol Last Admin: 08/16/19 11:59 Dose: 0.1 units/kg/hr, 11.793 mls/hr Documented by: Sodium Chloride (Normal Saline -) 1,000 mls @ 125 mls/hr IV ASDIR BRENT Levothyroxine Sodium (Synthroid -) 25 mcg PO DAILY@0700 [facility] Pantoprazole Sodium (Protonix -) 40 mg PO DAILY BRENT Constitutional: Yes: Awake and alert, NAD Eyes: Yes: Conjunctiva Clear, EOM Intact HENT: Yes: Atraumatic, Normocephalic Neck: Yes: Supple, Trachea Midline Cardiovascular: Yes: Regular Rate and Rhythm Respiratory: Yes: Regular, CTA Bilaterally Gastrointestinal: Yes: Normal Bowel Sounds, Soft, Abdomen, Obese ...Rectal Exam: Yes: Deferred Renal/: Yes: WNL Breast(s): Yes: WNL Musculoskeletal: Yes: Muscle Weakness Extremities: Yes: WNL Edema: No Peripheral Pulses WNL: Yes Integumentary: Yes: WNL Neurological: Yes: WNL ...Motor Strength: WNL Psychiatric: Yes: WNL Labs: Laboratory Results - last 24 hr 08/16/19 08/16/19 08/16/19 09:10 09:10 09:10 WBC 10.3 H RBC 3.77 L Hgb 11.9 Hct 38.3 MCV 101.6 H MCH 31.5 MCHC 31.0 L RDW 15.1 Plt Count 203 D MPV 10.0 D Absolute Neuts (auto) 8.3 H Neutrophils % 80.3 Lymphocytes % 8.9 D Monocytes % 10.6 H Eosinophils % 0.1 Basophils % 0.1 Nucleated RBC % 0 PT with INR 14.00 H INR 1.18 H VBG pH 7.220 L POC VBG pCO2 33.5 L POC VBG pO2 69.9 H VBG HCO3 13.4 L VBG O2 Sat ([place]) 90.9 H VBG Base Excess -13.2 L Sodium Potassium Chloride Carbon Dioxide Anion Gap BUN Creatinine Est GFR (CKD-EPI)AfAm Est GFR (CKD-EPI)NonAf POC Glucometer Random Glucose Lactic Acid Calcium Total Bilirubin AST ALT Alkaline Phosphatase Total Protein Albumin Beta-Hydroxybutyrate Urine Color Urine Appearance Urine pH Ur Specific [place] Urine Protein Urine Glucose (UA) Urine Ketones Urine Blood Urine Nitrite Urine Bilirubin Urine Urobilinogen Ur Leukocyte Esterase 08/16/19 08/16/19 08/16/19 09:10 09:10 09:23 WBC RBC Hgb Hct MCV MCH MCHC RDW Plt Count MPV Absolute Neuts (auto) Neutrophils % Lymphocytes % Monocytes % Eosinophils % Basophils % Nucleated RBC % PT with INR INR VBG pH POC VBG pCO2 POC VBG pO2 VBG HCO3 VBG O2 Sat ([place]) VBG Base Excess Sodium 132 L Potassium 5.1 Chloride 94 L Carbon Dioxide 14 L Anion Gap 24 H BUN 54.3 H Creatinine 2.9 H Est GFR (CKD-EPI)AfAm 24.98 Est GFR (CKD-EPI)NonAf 21.55 POC Glucometer > 600 Random Glucose 839 H* Lactic Acid 5.6 H* Calcium 9.0 Total Bilirubin 1.2 H AST 36 ALT 43 Alkaline Phosphatase 98 Total Protein 7.4 Albumin 4.0 Beta-Hydroxybutyrate 87.6 H Urine Color Urine Appearance Urine pH Ur Specific [place] Urine Protein Urine Glucose (UA) Urine Ketones Urine Blood Urine Nitrite Urine Bilirubin Urine Urobilinogen Ur Leukocyte Esterase 08/16/19 08/16/19 08/16/19 11:29 12:15 12:42 WBC RBC Hgb Hct MCV MCH MCHC RDW Plt Count MPV Absolute Neuts (auto) Neutrophils % Lymphocytes % Monocytes % Eosinophils % Basophils % Nucleated RBC % PT with INR INR VBG pH POC VBG pCO2 POC VBG pO2 VBG HCO3 VBG O2 Sat ([place]) VBG Base Excess Sodium Potassium Chloride Carbon Dioxide Anion Gap BUN Creatinine Est GFR (CKD-EPI)AfAm Est GFR (CKD-EPI)NonAf POC Glucometer > 600 Random Glucose Lactic Acid 4.8 H* Calcium Total Bilirubin AST ALT Alkaline Phosphatase Total Protein Albumin Beta-Hydroxybutyrate Urine Color Yellow Urine Appearance Clear Urine pH 5.0 Ur Specific [place] 1.021 Urine Protein Negative Urine Glucose (UA) 3+ H Urine Ketones Trace H Urine Blood Negative Urine Nitrite Negative Urine Bilirubin Negative Urine Urobilinogen 0.2 Ur Leukocyte Esterase Negative 08/16/19 08/16/19 08/16/19 12:53 13:07 13:07 WBC RBC Hgb Hct MCV MCH MCHC RDW Plt Count MPV Absolute Neuts (auto) Neutrophils % Lymphocytes % Monocytes % Eosinophils % Basophils % Nucleated RBC % PT with INR INR VBG pH 7.125 L* POC VBG pCO2 39.9 POC VBG pO2 39.1 VBG HCO3 12.8 L VBG O2 Sat ([place]) 57.7 L VBG Base Excess -15.8 L Sodium 135 L Potassium 5.3 H Chloride 98 Carbon Dioxide 11 L Anion Gap 26 H BUN 58.7 H Creatinine 3.0 H Est GFR (CKD-EPI)AfAm 23.98 Est GFR (CKD-EPI)NonAf 20.69 POC Glucometer > 600 Random Glucose 797 H* Lactic Acid Calcium 8.3 L Total Bilirubin AST ALT Alkaline Phosphatase Total Protein Albumin Beta-Hydroxybutyrate 83.8 H Urine Color Urine Appearance Urine pH Ur Specific [place] Urine Protein Urine Glucose (UA) Urine Ketones Urine Blood Urine Nitrite Urine Bilirubin Urine Urobilinogen Ur Leukocyte Esterase 08/16/19 13:49 WBC RBC Hgb Hct MCV MCH MCHC RDW Plt Count MPV Absolute Neuts (auto) Neutrophils % Lymphocytes % Monocytes % Eosinophils % Basophils % Nucleated RBC % PT with INR INR VBG pH POC VBG pCO2 POC VBG pO2 VBG HCO3 VBG O2 Sat ([place]) VBG Base Excess Sodium Potassium Chloride Carbon Dioxide Anion Gap BUN Creatinine Est GFR (CKD-EPI)AfAm Est GFR (CKD-EPI)NonAf POC Glucometer > 600 Random Glucose Lactic Acid Calcium Total Bilirubin AST ALT Alkaline Phosphatase Total Protein Albumin Beta-Hydroxybutyrate Urine Color Urine Appearance Urine pH Ur Specific [place] Urine Protein Urine Glucose (UA) Urine Ketones Urine Blood Urine Nitrite Urine Bilirubin Urine Urobilinogen Ur Leukocyte Esterase Problem List - Problems (1) Dehydration Code(s): E86.0 - DEHYDRATION (2) Insulin dependent diabetes mellitus Code(s): [id number] - (3) Nausea & vomiting Code(s): R11.2 - NAUSEA WITH VOMITING, UNSPECIFIED (4) Muscle weakness (generalized) Code(s): M62.81 - MUSCLE WEAKNESS (GENERALIZED) (5) DKA (diabetic ketoacidoses) Code(s): E13.10 - OTH DIABETES MELLITUS WITH KETOACIDOSIS WITHOUT COMA Qualifiers: Diabetes mellitus type: type 1 Diabetes mellitus complication detail: without coma Qualified Code(s): E10.10 - Type 1 diabetes mellitus with ketoacidosis without coma Assessment/Plan IVF resuscitation Strict I & O Supplemental O2 as needed VTE prophylaxis Contact Endocrine attending for input Follow BGM and AG Monitor ABX Requires ICU monitoring Dr Self Critical care time spent in reviewing chart, evaluating patient and formulating plan - 36 minutes.
[2019-08-16] MEDS ORDERED: ENOXAPARIN NA (PORCINE) 40 MG/0.4 ML DISP.SYRIN SQ SCH (15:00)
[2019-08-16] MEDS ORDERED: SODIUM CHLORIDE 0.9%/KCL 20 MEQ/1,000 ML INFUS.BAG IV SCH (15:00)
[2019-08-16] MEDS ORDERED: ENOXAPARIN NA (PORCINE) 40 MG/0.4 ML DISP.SYRIN SQ ONE (15:06)
[2019-08-16] MEDS ORDERED: LACTATED RINGERS SOLUTION 1,000 ML/1,000 ML INFUS.BAG IV SCH ×2 (15:15→21:49)
[2019-08-16] MEDS ORDERED: INSULIN REGULAR HUMAN 100 UNITS/ML *VIAL ONE (15:36)
--- NOTE | 2019-08-16 16:12 | CONSULT ---
Consultation: REQUESTING PROVIDER: Dr. Martinez CONSULT REQUEST: We have been asked to medically evaluate this patient for DKA. HISTORY OF PRESENT ILLNESS: Pt is a 68 y/o male with IDDM2 and hypothyroidism who presents with hyperglycemia at 839 with AG 24. He was admitted in February 2108 for DKA. He reports having used an insulin pump for the last 10 years with last replacement near the beginning of the year. He is now concerned there may be a problem with the pump, although it was checked in the last several months. He denies fever, chills, URI symptoms, dizziness, nausea, vomiting, polydypsia, polyuria. He is active and has had no recent changes to diet or activity. Per ED RN, pt did have slight emesis in ED. REVIEW OF SYSTEMS: see HPI PHYSICAL EXAMINATION Vital Signs - 24 hr 08/16/19 08/16/19 08:59 15:18 Temperature 98.7 F 98.8 F Pulse Rate 111 H Pulse Rate [ 87 Apical] Respiratory 16 19 Rate Blood Pressure 141/52 L Blood Pressure 133/55 L [Left Arm] O2 Sat by Pulse 99 98 Oximetry (%) GENERAL: Awake, alert, and fully oriented, in no acute distress. HEAD: Normal with no signs of trauma. EYES: Pupils equal, round and reactive to light, extraocular movements intact, conjunctiva clear. EARS, NOSE, THROAT: Ears normal, nares patent, moist mucous membranes. NECK: Normal range of motion. LUNGS: Clear to auscultation bilaterally. No wheezes, and no crackles. No accessory muscle use. HEART: Regular rate and rhythm, no murmur. ABDOMEN: Soft, nontender, not distended, normoactive bowel sounds. MUSCULOSKELETAL: Normal range of motion at all joints. UPPER EXTREMITIES: Warm, well-perfused. No peripheral edema. LOWER EXTREMITIES: Warm, well-perfused. No peripheral edema. NEUROLOGICAL: Cranial nerves II-XII grossly intact. Normal speech. PSYCHIATRIC: Cooperative. Good eye contact. Appropriate mood and affect. SKIN: Warm, dry, normal turgor, no rashes or lesions noted. Laboratory Results - last 24 hr 08/16/19 08/16/19 08/16/19 09:10 09:10 09:10 WBC 10.3 H RBC 3.77 L Hgb 11.9 Hct 38.3 MCV 101.6 H MCH 31.5 MCHC 31.0 L RDW 15.1 Plt Count 203 D MPV 10.0 D Absolute Neuts (auto) 8.3 H Neutrophils % 80.3 Lymphocytes % 8.9 D Monocytes % 10.6 H Eosinophils % 0.1 Basophils % 0.1 Nucleated RBC % 0 PT with INR 14.00 H INR 1.18 H VBG pH 7.220 L POC VBG pCO2 33.5 L POC VBG pO2 69.9 H VBG HCO3 13.4 L VBG O2 Sat ([place]) 90.9 H VBG Base Excess -13.2 L Sodium Potassium Chloride Carbon Dioxide Anion Gap BUN Creatinine Est GFR (CKD-EPI)AfAm Est GFR (CKD-EPI)NonAf POC Glucometer Random Glucose Lactic Acid Calcium Total Bilirubin AST ALT Alkaline Phosphatase Total Protein Albumin Beta-Hydroxybutyrate Urine Color Urine Appearance Urine pH Ur Specific [place] Urine Protein Urine Glucose (UA) Urine Ketones Urine Blood Urine Nitrite Urine Bilirubin Urine Urobilinogen Ur Leukocyte Esterase 08/16/19 08/16/19 08/16/19 09:10 09:10 09:23 WBC RBC Hgb Hct MCV MCH MCHC RDW Plt Count MPV Absolute Neuts (auto) Neutrophils % Lymphocytes % Monocytes % Eosinophils % Basophils % Nucleated RBC % PT with INR INR VBG pH POC VBG pCO2 POC VBG pO2 VBG HCO3 VBG O2 Sat ([place]) VBG Base Excess Sodium 132 L Potassium 5.1 Chloride 94 L Carbon Dioxide 14 L Anion Gap 24 H BUN 54.3 H Creatinine 2.9 H Est GFR (CKD-EPI)AfAm 24.98 Est GFR (CKD-EPI)NonAf 21.55 POC Glucometer > 600 Random Glucose 839 H* Lactic Acid 5.6 H* Calcium 9.0 Total Bilirubin 1.2 H AST 36 ALT 43 Alkaline Phosphatase 98 Total Protein 7.4 Albumin 4.0 Beta-Hydroxybutyrate 87.6 H Urine Color Urine Appearance Urine pH Ur Specific [place] Urine Protein Urine Glucose (UA) Urine Ketones Urine Blood Urine Nitrite Urine Bilirubin Urine Urobilinogen Ur Leukocyte Esterase 08/16/19 08/16/19 08/16/19 11:29 12:15 12:42 WBC RBC Hgb Hct MCV MCH MCHC RDW Plt Count MPV Absolute Neuts (auto) Neutrophils % Lymphocytes % Monocytes % Eosinophils % Basophils % Nucleated RBC % PT with INR INR VBG pH POC VBG pCO2 POC VBG pO2 VBG HCO3 VBG O2 Sat ([place]) VBG Base Excess Sodium Potassium Chloride Carbon Dioxide Anion Gap BUN Creatinine Est GFR (CKD-EPI)AfAm Est GFR (CKD-EPI)NonAf POC Glucometer > 600 Random Glucose Lactic Acid 4.8 H* Calcium Total Bilirubin AST ALT Alkaline Phosphatase Total Protein Albumin Beta-Hydroxybutyrate Urine Color Yellow Urine Appearance Clear Urine pH 5.0 Ur Specific [place] 1.021 Urine Protein Negative Urine Glucose (UA) 3+ H Urine Ketones Trace H Urine Blood Negative Urine Nitrite Negative Urine Bilirubin Negative Urine Urobilinogen 0.2 Ur Leukocyte Esterase Negative 08/16/19 08/16/19 08/16/19 12:53 13:07 13:07 WBC RBC Hgb Hct MCV MCH MCHC RDW Plt Count MPV Absolute Neuts (auto) Neutrophils % Lymphocytes % Monocytes % Eosinophils % Basophils % Nucleated RBC % PT with INR INR VBG pH 7.125 L* POC VBG pCO2 39.9 POC VBG pO2 39.1 VBG HCO3 12.8 L VBG O2 Sat ([place]) 57.7 L VBG Base Excess -15.8 L Sodium 135 L Potassium 5.3 H Chloride 98 Carbon Dioxide 11 L Anion Gap 26 H BUN 58.7 H Creatinine 3.0 H Est GFR (CKD-EPI)AfAm 23.98 Est GFR (CKD-EPI)NonAf 20.69 POC Glucometer > 600 Random Glucose 797 H* Lactic Acid Calcium 8.3 L Total Bilirubin AST ALT Alkaline Phosphatase Total Protein Albumin Beta-Hydroxybutyrate 83.8 H Urine Color Urine Appearance Urine pH Ur Specific [place] Urine Protein Urine Glucose (UA) Urine Ketones Urine Blood Urine Nitrite Urine Bilirubin Urine Urobilinogen Ur Leukocyte Esterase 08/16/19 08/16/19 08/16/19 13:49 14:55 15:44 WBC RBC Hgb Hct MCV MCH MCHC RDW Plt Count MPV Absolute Neuts (auto) Neutrophils % Lymphocytes % Monocytes % Eosinophils % Basophils % Nucleated RBC % PT with INR INR VBG pH POC VBG pCO2 POC VBG pO2 VBG HCO3 VBG O2 Sat ([place]) VBG Base Excess Sodium Potassium Chloride Carbon Dioxide Anion Gap BUN Creatinine Est GFR (CKD-EPI)AfAm Est GFR (CKD-EPI)NonAf POC Glucometer > 600 544 > 600 Random Glucose Lactic Acid Calcium Total Bilirubin AST ALT Alkaline Phosphatase Total Protein Albumin Beta-Hydroxybutyrate Urine Color Urine Appearance Urine pH Ur Specific [place] Urine Protein Urine Glucose (UA) Urine Ketones Urine Blood Urine Nitrite Urine Bilirubin Urine Urobilinogen Ur Leukocyte Esterase Active Medications Generic Name Dose Route Start Last Admin Trade Name Wendy PRN Reason Stop Dose Admin Atorvastatin Calcium 10 mg 08/16/19 22:00 Lipitor - PO HS BRENT Chlorhexidine Gluconate 1 applic 08/16/19 22:00 Hibiclens For Decolonization - TP HS [facility] Heparin Sodium (Porcine) 5,000 unit 08/17/19 10:00 Heparin - SQ TID [facility] Insulin Human Regular 100 100 mls @ 11.793 mls/hr 08/16/19 11:15 08/16/19 11:59 units/ Sodium Chloride IVPB 0.1 units/kg/hr TITR BRENT 11.793 mls/hr Administration Protocol 0.1 UNITS/KG/HR Lactated Ringer's 1,000 ml in 1,000 mls @ 125 mls/hr 08/16/19 15:15 08/16/19 15:16 Lactated Ringers Solution IV 125 mls/hr ASDIR BRENT Administration Levothyroxine Sodium 25 mcg 08/17/19 07:00 Synthroid - PO DAILY@0700 [facility] Mupirocin 1 applic 08/16/19 22:00 Bactroban Ointment (For Decolonization) - NS 08/21/19 21:59 BID BRENT Pantoprazole Sodium 40 mg 08/17/19 10:00 Protonix - PO DAILY [facility] ASSESSMENT/PLAN: Pt is a 68 y/o male with IDDM2 and hypothyroidism who presents with hyperglycemia at 839. He reports having used an insulin pump for the last 10 years with last replacement near the beginning of the year. He is admitted for DKA. #neuro -A&Ox3 #cardio -hemodynamically stable #pulm -satting well on RA #endo -DKA -BG 839 and AG 24 at presentation, gap now closed -beta-hydroxybutyrate 88 -insulin bolus and drip -LR -Q2H BMPs for AG closure and BG monitoring -switch to D5W and sub Q insulin when BG <250 -TSH normal -continue home levothyroxine #renal -pseudohyponatremia at presentation 2/2 DKA -KEERTHI vs CKD -Cr 2.9 -trend #GI -tolerating diet DVT ppx heparin FEN LR monitor K, BG diabetic diet Dispo: ICU. We will continue to follow the patient. Thank you for this consultative opportunity. Visit type - Emergency Visit Emergency Visit: Yes ED Registration Date: 08/16/19 Care time: The patient presented to the Emergency Department on the above date and was hospitalized for further evaluation of their emergent condition. - New Patient This patient is new to me today: Yes Date on this admission: 08/16/19 - Critical Care Critical Care patient: Yes Total Critical Care Time (in minutes): 40 Critical Care Statement: The care of this patient involved high complexity decision making to prevent further life threatening deterioration of the patient's condition and/or to evaluate & treat vital organ system(s) failure or risk of failure. ATTENDING PHYSICIAN STATEMENT I saw and evaluated the patient. I reviewed the resident's note and discussed the case with the resident. I agree with the resident's findings and plan as documented. SUBJECTIVE: OBJECTIVE: ASSESSMENT AND PLAN:
[2019-08-16 16:56] VITALS: BMI 32.7
[2019-08-16 17:38] LABS: BLOOD UREA NITROGEN 55.6 mg/dL (7-18); CALCIUM 8.3 mg/dL (8.5-10.1); CREATININE 2.9 mg/dL (0.55-1.3); POTASSIUM 4.1 mmol/L (3.5-5.1)
[2019-08-16 20:46] LABS: BLOOD UREA NITROGEN 56.8 mg/dL (7-18); CALCIUM 8.3 mg/dL (8.5-10.1); CREATININE 2.7 mg/dL (0.55-1.3); POTASSIUM 4.3 mmol/L (3.5-5.1)
[2019-08-16] MEDS ORDERED: INSULIN (LEVEMIR) 100 UNITS/ML UNITS SQ ONE (21:48)
[2019-08-16] MEDS ORDERED: CHLORHEXIDINE GLUCONATE 4% CLEANSER FOR DECOLONIZATION TP SCH (22:00)
[2019-08-16] MEDS ORDERED: MUPIROCIN 2% TOPICAL OINTMENT FOR DECOLONIZATION NS SCH (22:00)
[2019-08-16] MEDS ORDERED: ATORVASTATIN CA 10 MG TABLET (FP) ONE (22:54)
[2019-08-16] MEDS ORDERED: NAPH,MB-DB/K PH,MBDB POWDER PACKET PO ONE (23:19)
[2019-08-17 00:05] LABS: CALCIUM 8.1 mg/dL (8.5-10.1); CREATININE 2.5 mg/dL (0.55-1.3); POTASSIUM 4.6 mmol/L (3.5-5.1)
[2019-08-17] MEDS ORDERED: NAPH,MB-DB/K PH,MBDB POWDER PACKET ONE (00:35)
[2019-08-17] MEDS: ATORVASTATIN CA 10 MG TABLET (FP) PO SCH ×2 (00:47→21:13)
[2019-08-17 02:54] LABS: BLOOD UREA NITROGEN 51.4 mg/dL (7-18); CALCIUM 8.2 mg/dL (8.5-10.1); CREATININE 2.4 mg/dL (0.55-1.3); POTASSIUM 3.6 mmol/L (3.5-5.1)
[2019-08-17] MEDS ORDERED: DEXTROSE 5%-WATER - 1,000 ML IV SCH (03:30)
[2019-08-17 07:49] LABS: BASO % 0.2 % (0-2.0); EOS % 0.3 % (0-4.5); HEMATOCRIT 36.6 % (35.4-49); HEMOGLOBIN 11.8 GM/dL (11.7-16.9); LYMPH % 11.9 % (8-40); MCH 30.7 pg (25.7-33.7); MCHC 32.3 g/dl (32.0-35.9); MEAN PLT VOLUME 8.9 fl (7.5-11.1); MONO % 9.2 % (3.8-10.2); NEUT % 78.4 % (42.8-82.8); PLATELET COUNT 190 K/MM3 (134-434); RBC 3.86 M/mm3 (4.00-5.60); RDW 14.6 % (11.9-15.9); WHITE BLOOD COUNT 10.8 K/mm3 (4.0-10.0)
[2019-08-17 08:13] LABS: ALBUMIN 3.7 g/dl (3.4-5.0); BLOOD UREA NITROGEN 45.1 mg/dL (7-18); CALCIUM 8.2 mg/dL (8.5-10.1); CREATININE 1.9 mg/dL (0.55-1.3); MAGNESIUM 2.9 mg/dL (1.8-2.4); PHOSPHOROUS 2.4 mg/dL (2.5-4.9); POTASSIUM 3.9 mmol/L (3.5-5.1); TOT PROT 7.1 g/dl (6.4-8.2)
[2019-08-17] MEDS: INSULIN SLIDING SCALE (NOVOLOG) 1 VIAL SQ SCH ×4 (08:22→21:14)
--- NOTE | 2019-08-17 08:47 | PN ---
Progress Note, Physician Chief Complaint: Patient seen and examined at the bedside, no acute events from last night, no nausea and vomiting. History of Present Illness: This 68 yr male with PMH of IDDM, HTN, CKD, and hypothyroidism admitted via ER with an acute diabetic ketoacidosis, uncontrolled IDDM, and an acute dehydration. - Current Medication List Current Medications: Active Medications Aspirin (Asa -) 81 mg PO DAILY COUNT INCLUDES [facility] Atorvastatin Calcium (Lipitor -) 10 mg PO HS COUNT INCLUDES [facility] Last Admin: 08/17/19 00:47 Dose: 10 mg Documented by: Chlorhexidine Gluconate (Hibiclens For Decolonization -) 1 applic TP HS COUNT INCLUDES [facility] Heparin Sodium (Porcine) (Heparin -) 5,000 unit SQ TID COUNT [facility]CLUDES [facility] Dextrose (D5w -) 1,000 mls @ 75 mls/hr IV .Q10H COUNT INCLUDES [facility] Insulin Aspart (Novolog Vial Sliding Scale -) 1 vial SQ ACHS COUNT INCLUDES [facility]; Protocol Last Admin: 08/17/19 08:22 Dose: Not Given Documented by: Levothyroxine Sodium (Synthroid -) 25 mcg PO DAILY@0700 COUNT INCLUDES [facility] Mupirocin (Bactroban Ointment (For Decolonization) -) 1 applic NS BID COUNT INCLUDES [facility] Stop: 08/21/19 21:59 Pantoprazole Sodium (Protonix -) 40 mg PO DAILY COUNT INCLUDES [facility] - Objective Vital Signs: Vital Signs Temperature 98.7 F 08/17/19 07:23 Pulse Rate 70 08/17/19 07:23 Respiratory Rate 18 08/17/19 07:23 Blood Pressure 125/97 08/17/19 07:23 O2 Sat by Pulse Oximetry (%) 100 08/17/19 07:23 Constitutional: Yes: Well Nourished, No Distress, Calm Eyes: Yes: Conjunctiva Clear, EOM Intact HENT: Yes: Atraumatic, Normocephalic Neck: Yes: Supple, Trachea Midline Cardiovascular: Yes: Regular Rate and Rhythm Respiratory: Yes: Regular, CTA Bilaterally Gastrointestinal: Yes: Normal Bowel Sounds, Soft ...Rectal Exam: Yes: Deferred Genitourinary: Yes: WNL Breast(s): Yes: WNL Musculoskeletal: Yes: WNL Extremities: Yes: WNL Edema: No Peripheral Pulses WNL: Yes Integumentary: Yes: WNL Neurological: Yes: WNL ...Motor Strength: WNL Psychiatric: Yes: WNL Labs: CBC, BMP 08/17/19 07:01 08/17/19 07:01 INR, PTT INR 1.18 (0.83-1.09) H 08/16/19 09:10 - ....Imaging Other: Report Reviewed (lab data reviewed) Problem List - Problems (1) Dehydration Code(s): E86.0 - DEHYDRATION (2) Insulin dependent diabetes mellitus Code(s): [id number] - (3) Nausea & vomiting Code(s): R11.2 - NAUSEA WITH VOMITING, UNSPECIFIED (4) Muscle weakness (generalized) Code(s): M62.81 - MUSCLE WEAKNESS (GENERALIZED) (5) DKA (diabetic ketoacidoses) Code(s): E13.10 - OTH DIABETES MELLITUS WITH KETOACIDOSIS WITHOUT COMA Qualifiers: Diabetes mellitus type: type 1 Diabetes mellitus complication detail: [facility] Qualified Code(s): E10.10 - Type 1 diabetes mellitus with ket oacidosis without coma Assessment/Plan Assessment/plan: acute diabetic ketoacidosis, acute dehydration, acute prerenal azotemia, obesity, HTN, CKD, hypothyroidism; IV fluids, sliding scale regular insulin coverage, DVT/GI prophylaxis, out of bed in chair as tolerated, statin, aspirin, levothyroxine, admit to med/surg floor.
[2019-08-17] MEDS ORDERED: ASPIRIN 81 MG CHEWABLE TABLETS ONE (08:59)
[2019-08-17] MEDS ORDERED: PANTOPRAZOLE 40 MG TABLET ONE (09:00)
[2019-08-17] MEDS: LEVOTHYROXINE NA 25 MCG TABLET (FP) PO SCH (09:00)
[2019-08-17] MEDS ORDERED: LEVOTHYROXINE NA 25 MCG TABLET (FP) ONE (09:00)
[2019-08-17] MEDS ORDERED: HEPARIN NA (PORCINE) 5,000 UNITS/ML 1ML VIAL ONE (09:00)
[2019-08-17] MEDS: HEPARIN NA (PORCINE) 5,000 UNITS/ML 1ML VIAL SQ SCH ×3 (09:41→21:13)
[2019-08-17] MEDS: ASPIRIN 81 MG CHEWABLE TABLETS PO SCH (09:41)
[2019-08-17] MEDS: PANTOPRAZOLE 40 MG TABLET PO SCH (09:41)
[2019-08-17] MEDS ORDERED: ASPIRIN COATED 81 MG TABLET.EC PO SCH (10:00)
[2019-08-17] MEDS ORDERED: LEVOTHYROXINE NA 25 MCG TABLET (FP) PO SCH (10:00)
[2019-08-17] MEDS ORDERED: LOSARTAN 50MG/HCTZ 12.5MG 1 TAB (FP) PO SCH (10:00)
[2019-08-18] MEDS: HEPARIN NA (PORCINE) 5,000 UNITS/ML 1ML VIAL SQ SCH ×3 (06:59→21:15)
[2019-08-18] MEDS: LEVOTHYROXINE NA 25 MCG TABLET (FP) PO SCH (07:00)
[2019-08-18] MEDS: INSULIN SLIDING SCALE (NOVOLOG) 1 VIAL SQ SCH ×4 (07:00→21:17)
[2019-08-18 08:13] LABS: BASO % 0.2 % (0-2.0); EOS % 1.6 % (0-4.5); HEMATOCRIT 36.3 % (35.4-49); HEMOGLOBIN 11.7 GM/dL (11.7-16.9); LYMPH % 28.2 % (8-40); MCH 30.6 pg (25.7-33.7); MCHC 32.2 g/dl (32.0-35.9); MEAN CELL VOLUME 95.2 fl (80-96); MEAN PLT VOLUME 9.1 fl (7.5-11.1); MONO % 10.9 % (3.8-10.2); NEUT % 59.1 % (42.8-82.8); PLATELET COUNT 168 K/MM3 (134-434); RBC 3.81 M/mm3 (4.00-5.60); RDW 14.5 % (11.9-15.9); WHITE BLOOD COUNT 5.1 K/mm3 (4.0-10.0)
--- NOTE | 2019-08-18 08:18 | PN ---
Progress Note, Physician Chief Complaint: Patient seen and examined at the bedside, no acute events from last night, acute sore throat, no headache, no nausea and vomiting. History of Present Illness: This 68 yr old male with PMH of IDDM, HTN, CKD, and hypothyroidism admitted via ER with an acute diabetic ketoacidosis, and acute dehydration. - Current Medication List Current Medications: Active Medications Aspirin (Asa -) 81 mg PO DAILY [facility] Last Admin: 08/17/19 09:41 Dose: 81 mg Documented by: Atorvastatin Calcium (Lipitor -) 10 mg PO HS [facility] Last Admin: 08/17/19 21:13 Dose: 10 mg Documented by: Heparin Sodium (Porcine) (Heparin -) 5,000 unit SQ TID [facility] Last Admin: 08/18/19 06:59 Dose: 5,000 unit Documented by: Insulin Aspart (Novolog Vial Sliding Scale -) 1 vial SQ ACHS [facility]; Protocol Last Admin: 08/18/19 07:00 Dose: 12 units Documented by: Insulin Aspart (Novolog Mix 70/30 Vial) 10 units SQ BIDAC [facility] Levothyroxine Sodium (Synthroid -) 25 mcg PO DAILY@0700 [facility] Last Admin: 08/18/19 07:00 Dose: 25 mcg Documented by: Pantoprazole Sodium (Protonix -) 40 mg PO DAILY [facility] Last Admin: 08/17/19 09:41 Dose: 40 mg Documented by: - Objective Vital Signs: Vital Signs Temperature 98.9 F 08/18/19 04:00 Pulse Rate 71 08/18/19 04:00 Respiratory Rate 18 08/18/19 04:00 Blood Pressure 146/80 08/18/19 04:00 O2 Sat by Pulse Oximetry (%) 99 08/17/19 21:00 Constitutional: Yes: Well Nourished, No Distress, Calm Eyes: Yes: Conjunctiva Clear, EOM Intact HENT: Yes: Atraumatic, Normocephalic Neck: Yes: Supple, Trachea Midline Respiratory: Yes: Regular, CTA Bilaterally Gastrointestinal: Yes: Normal Bowel Sounds, Soft ...Rectal Exam: Yes: Deferred Genitourinary: Yes: WNL Breast(s): Yes: WNL Musculoskeletal: Yes: WNL Extremities: Yes: WNL Edema: No Peripheral Pulses WNL: Yes Integumentary: Yes: WNL Neurological: Yes: WNL ...Motor Strength: WNL Psychiatric: Yes: WNL Labs: INR, PTT INR 1.18 (0.83-1.09) H 08/16/19 09:10 - ....Imaging Other: Report Reviewed (lab data reviewed) Problem List - Problems (1) Dehydration Code(s): E86.0 - DEHYDRATION (2) Insulin dependent diabetes mellitus Code(s): [id number] - (3) Nausea & vomiting Code(s): R11.2 - NAUSEA WITH VOMITING, UNSPECIFIED (4) Muscle weakness (generalized) Code(s): M62.81 - MUSCLE WEAKNESS (GENERALIZED) (5) DKA (diabetic ketoacidoses) Code(s): E13.10 - OTH DIABETES MELLITUS WITH KETOACIDOSIS WITHOUT COMA Qualifiers: Diabetes mellitus type: type 1 Diabetes mellitus complication detail: without coma Qualified Code(s): E10.10 - Type 1 diabetes mellitus with ket oacidosis without coma Assessment/Plan Assessment/plan: acute diabetic ketoacidosis, acute dehydration, acute sore throat, HTN, CKD, hypothyroidism; throat culture, d/c iv fluids, dvt/gi prophylaxis, novolog 70/30 mix, sliding scale regular insulin coverage, statin, aspirin, levothyroxine, out of bed in chair as tolerated, may ambulate in room.
[2019-08-18 08:43] LABS: ALBUMIN 3.4 g/dl (3.4-5.0); BILIRUBIN,TOTAL 1.2 mg/dL (0.2-1); BLOOD UREA NITROGEN 23.8 mg/dL (7-18); CALCIUM 8.3 mg/dL (8.5-10.1); CREATININE 1.2 mg/dL (0.55-1.3); PHOSPHOROUS 2.4 mg/dL (2.5-4.9); POTASSIUM 4.3 mmol/L (3.5-5.1); TOT PROT 6.7 g/dl (6.4-8.2)
[2019-08-18] MEDS: PANTOPRAZOLE 40 MG TABLET PO SCH (09:23)
[2019-08-18] MEDS: ASPIRIN 81 MG CHEWABLE TABLETS PO SCH (09:23)
[2019-08-18] MEDS: INSULIN (NOVOLOG MIX 70/30) 100 UNITS/ML MDV SQ SCH ×2 (09:48→16:44)
--- NOTE | 2019-08-18 14:17 | EKG ---
Test Reason : Blood Pressure : / mmHG Vent. Rate : 094 BPM Atrial Rate : 094 BPM P-R Int : 184 ms QRS Dur : 106 ms QT Int : 396 ms P-R-T Axes : 076 074 070 degrees QTc Int : 495 ms NORMAL SINUS RHYTHM PROLONGED QT ABNORMAL ECG WHEN COMPARED WITH ECG OF 23-FEB-2018 23:37, NO SIGNIFICANT CHANGE WAS FOUND Confirmed by PEYTON CAMARENA MD ([id number]) on 08/18/2019 2:17:22 PM Referred By: Confirmed By:PEYTON CAMARENA MD
[2019-08-18] MEDS: ATORVASTATIN CA 10 MG TABLET (FP) PO SCH (21:15)
[2019-08-19] MEDS: HEPARIN NA (PORCINE) 5,000 UNITS/ML 1ML VIAL SQ SCH ×3 (06:21→22:15)
[2019-08-19] MEDS: INSULIN (NOVOLOG MIX 70/30) 100 UNITS/ML MDV SQ SCH ×2 (06:23→16:47)
[2019-08-19] MEDS: INSULIN SLIDING SCALE (NOVOLOG) 1 VIAL SQ SCH ×4 (06:24→22:17)
[2019-08-19] MEDS: LEVOTHYROXINE NA 25 MCG TABLET (FP) PO SCH (06:25)
--- NOTE | 2019-08-19 08:38 | PN ---
Progress Note, Physician Chief Complaint: Patient seen and examined at the bedside, no acute events from last night, no dizziness or nausea and vomiting. History of Present Illness: This 68 yr old male with PMH of IDDM, HTN, CKD, and hypothyroidism admitted via ER with an acute diabetic ketoacidosis, and an acute dehydration. - Current Medication List Current Medications: Active Medications Aspirin (Asa -) 81 mg PO DAILY [facility] Last Admin: 08/18/19 09:23 Dose: 81 mg Documented by: Atorvastatin Calcium (Lipitor -) 10 mg PO HS [facility] Last Admin: 08/18/19 21:15 Dose: 10 mg Documented by: Heparin Sodium (Porcine) (Heparin -) 5,000 unit SQ TID [facility] Last Admin: 08/19/19 06:21 Dose: 5,000 unit Documented by: Insulin Aspart (Novolog Mix 70/30 Vial) 10 units SQ BIDAC [facility] Last Admin: 08/19/19 06:23 Dose: 10 units Documented by: Insulin Aspart (Novolog Vial Sliding Scale -) 1 vial SQ ACHS [facility]; Protocol Last Admin: 08/19/19 06:24 Dose: 10 units Documented by: Levothyroxine Sodium (Synthroid -) 25 mcg PO DAILY@0700 [facility] Last Admin: 08/19/19 06:25 Dose: 25 mcg Documented by: Pantoprazole Sodium (Protonix -) 40 mg PO DAILY [facility] Last Admin: 08/18/19 09:23 Dose: 40 mg Documented by: - Objective Vital Signs: Vital Signs Temperature 98.7 F 08/19/19 06:19 Pulse Rate 70 08/19/19 06:19 Respiratory Rate 18 08/19/19 06:19 Blood Pressure 140/82 08/19/19 06:19 O2 Sat by Pulse Oximetry (%) 99 08/18/19 21:00 Constitutional: Yes: Well Nourished, No Distress, Calm Eyes: Yes: Conjunctiva Clear, EOM Intact HENT: Yes: Atraumatic, Normocephalic Neck: Yes: Supple, Trachea Midline Cardiovascular: Yes: Regular Rate and Rhythm Respiratory: Yes: Regular, CTA Bilaterally Gastrointestinal: Yes: Normal Bowel Sounds, Soft ...Rectal Exam: Yes: Deferred Genitourinary: Yes: WNL Breast(s): Yes: WNL Musculoskeletal: Yes: WNL Extremities: Yes: WNL Edema: No Peripheral Pulses WNL: Yes Integumentary: Yes: WNL Neurological: Yes: WNL ...Motor Strength: WNL Psychiatric: Yes: WNL Labs: CBC, BMP 08/18/19 07:30 08/18/19 07:30 INR, PTT INR 1.18 (0.83-1.09) H 08/16/19 09:10 - ....Imaging Other: Report Reviewed (lab data reviewed) Problem List - Problems (1) Dehydration Code(s): E86.0 - DEHYDRATION (2) Insulin dependent diabetes mellitus Code(s): [id number] - (3) Nausea & vomiting Code(s): R11.2 - NAUSEA WITH VOMITING, UNSPECIFIED (4) Muscle weakness (generalized) Code(s): M62.81 - MUSCLE WEAKNESS (GENERALIZED) (5) DKA (diabetic ketoacidoses) Code(s): E13.10 - OTH DIABETES MELLITUS WITH KETOACIDOSIS WITHOUT COMA Qualifiers: Diabetes mellitus type: type 1 Diabetes mellitus complication detail: without coma Qualified Code(s): E10.10 - Type 1 diabetes mellitus with ketoacidosis without coma Assessment/Plan Assessment/plan: acute diabetic ketoacidosis, acute dehydration, acute transaminasemia, HTN, CKD, hypothyroidism; Novolog 70/30 mix, sliding scale regular insulin coverage, consult to Reproductive Healthcare Assistant, out of bed in chair as tolerated, statin, DVT/GI prophylaxis, throat culture positive for staph ylococcus latex coag pos, pending organism.
[2019-08-19] MEDS ORDERED: INSULIN (NOVOLOG MIX 70/30) 100 UNITS/ML MDV SQ SCH (09:30)
[2019-08-19 09:40] LABS: BASO % 0.5 % (0-2.0); EOS % 2.1 % (0-4.5); HEMATOCRIT 36.3 % (35.4-49); HEMOGLOBIN 11.6 GM/dL (11.7-16.9); LYMPH % 46.9 % (8-40); MCH 30.7 pg (25.7-33.7); MCHC 32.1 g/dl (32.0-35.9); MEAN CELL VOLUME 95.5 fl (80-96); MEAN PLT VOLUME 9.1 fl (7.5-11.1); MONO % 9.9 % (3.8-10.2); NEUT % 40.6 % (42.8-82.8); PLATELET COUNT 173 K/MM3 (134-434); WHITE BLOOD COUNT 3.8 K/mm3 (4.0-10.0)
[2019-08-19] MEDS: ASPIRIN 81 MG CHEWABLE TABLETS PO SCH (09:40)
[2019-08-19] MEDS: PANTOPRAZOLE 40 MG TABLET PO SCH (09:40)
[2019-08-19 10:00] LABS: POTASSIUM 4.1 mmol/L (3.5-5.1)
[2019-08-19 10:12] LABS: ALBUMIN 3.2 g/dl (3.4-5.0); BILIRUBIN,TOTAL 1.6 mg/dL (0.2-1); BLOOD UREA NITROGEN 18.9 mg/dL (7-18); CALCIUM 8.2 mg/dL (8.5-10.1); CREATININE 1.1 mg/dL (0.55-1.3); TOT PROT 6.6 g/dl (6.4-8.2)
[2019-08-19 17:45] LABS: ALBUMIN 3.9 g/dl (3.4-5.0); BILIRUBIN,DIRECT 0.3 mg/dL (0.0-0.2); BILIRUBIN,TOTAL 0.9 mg/dL (0.2-1); TOT PROT 8.2 g/dl (6.4-8.2)
--- NOTE | 2019-08-19 19:23 | CON.GI ---
Consult Consult Specialty:: Gastroenterology Referred by:: Dr. Granda Reason for Consultation:: Abnormal LFTs - History of Present Illness Chief Complaint: DKA History of Present Illness: 68M admitted to manage DKA has elevated transaminases. He denies any h/o liver disease, IVDA, alcohol usage, transfusions and tattoos. NO FH of liver disease. 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 NO LFTs were drawn in the interim. He had a colonoscopy 6 years ago when a polyp was removed by ? Dr. Holden. - History Source History Provided By: Patient Limitations to Obtaining History: No Limitations - Past Medical History Cardio/Vascular: Yes: HTN, Hyperlipdemia Gastrointestinal: Yes: Other (colon polyp removed 6 years ago at colonoscopy) Infectious Disease: Yes: STD's Endocrine: Yes: Diabetes Mellitus, Hyperthyroidism (treated with RAIU and is now hypothyroid), Hypothyroidism - Past Surgical History Past Surgical History: Yes: Colonoscopy, Tonsillectomy - Alcohol/Substance Use Hx Alcohol Use: No History of Substance Use: reports: None - Smoking History Smoking history: Never smoked Have you smoked in the past 12 months: No Aproximately how many cigarettes per day: 0 - Social History Usual Living Arrangement: With Spouse ADL: Independent 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 Place of : [facility] Home Medications - Allergies Allergies/Adverse Reactions: Allergies Allergy/AdvReac Type Severity Reaction Status Date / Time No Known Allergies Allergy Verified 08/16/19 08:58 - Home Medications Home Medications: Ambulatory Orders Aspirin 81 mg PO DAILY 06/27/11 Insulin (LOG) Aspart [NovoLOG -] 81 unit SQ AM 06/27/11 Insulin Detemir [Levemir Flexpen] 36 unit SQ HS 06/27/11 Levothyroxine Sodium [Synthroid] 25 mcg PO DAILY 06/27/11 Losartan/Hydrochlorothiazide [Losartan-Hctz 100-25 mg Tab] 1 each PO HS 02/22/18 Simvastatin 20 mg PO HS 02/22/18 Family Medical History Other Family History: F 61 of pneumonia. Mother lived to Review of Systems - Review of Systems Constitutional: reports: Malaise Eyes: reports: No Symptoms HENT: reports: No Symptoms Neck: reports: No Symptoms Cardiovascular: reports: No Symptoms Respiratory: reports: No Symptoms Gastrointestinal: reports: No Symptoms Genitourinary: reports: No Symptoms Breasts: reports: No Symptoms Reported Musculoskeletal: reports: No Symptoms Integumentary: reports: No Symptoms Physical Exam-GI Vital Signs: Vital Signs Temperature 98.5 F 08/19/19 14:06 Pulse Rate 67 08/19/19 14:06 Respiratory Rate 18 08/19/19 14:06 Blood Pressure 136/78 08/19/19 14:06 O2 Sat by Pulse Oximetry (%) 99 08/19/19 09:00 CBC,CMP WBC 3.8 K/mm3 (4.0-10.0) L 08/19/19 08:25 RBC 3.80 M/mm3 (4.00-5.60) L 08/19/19 08:25 Hgb 11.6 GM/dL (11.7-16.9) L 08/19/19 08:25 Hct 36.3 % (35.4-49) 08/19/19 08:25 MCV 95.5 fl (80-96) 08/19/19 08:25 MCH 30.7 pg (25.7-33.7) 08/19/19 08:25 MCHC 32.1 g/dl (32.0-35.9) 08/19/19 08:25 RDW 14.0 % (11.9-15.9) 08/19/19 08:25 Plt Count 173 K/MM3 (134-434) 08/19/19 08:25 MPV 9.1 fl (7.5-11.1) 08/19/19 08:25 Absolute Neuts (auto) 1.6 K/mm3 (1.5-8.0) 08/19/19 08:25 Neutrophils % 40.6 % (42.8-82.8) L D 08/19/19 08:25 Lymphocytes % 46.9 % (8-40) H D 08/19/19 08:25 Monocytes % 9.9 % (3.8-10.2) 08/19/19 08:25 Eosinophils % 2.1 % (0-4.5) 08/19/19 08:25 Basophils % 0.5 % (0-2.0) 08/19/19 08:25 Nucleated RBC % 0 % (0-0) 08/19/19 08:25 Sodium 137 mmol/L (136-145) 08/19/19 08:25 Potassium 4.1 mmol/L (3.5-5.1) 08/19/19 08:25 Chloride 101 mmol/L (98-107) 08/19/19 08:25 Carbon Dioxide 28 mmol/L (21-32) 08/19/19 08:25 Anion Gap 7 MMOL/L (8-16) L 08/19/19 08:25 BUN 18.9 mg/dL (7-18) H 08/19/19 08:25 Creatinine 1.1 mg/dL (0.55-1.3) 08/19/19 08:25 Est GFR (CKD-EPI)AfAm 80.65 08/19/19 08:25 Est GFR (CKD-EPI)NonAf 69.58 08/19/19 08:25 POC Glucometer 241 UNITS (80-120) 08/19/19 16:45 Random Glucose 225 mg/dL (74-106) H 08/19/19 08:25 Hemoglobin A1c % 8.2 % (4.2-6.3) H 08/17/19 07:01 Lactic Acid 3.4 mmol/L (0.4-2.0) H* 08/16/19 19:55 Calcium 8.2 mg/dL (8.5-10.1) L 08/19/19 08:25 Phosphorus 2.4 mg/dL (2.5-4.9) L 08/18/19 07:30 Magnesium 2.9 mg/dL (1.8-2.4) H 08/17/19 07:01 Total Bilirubin 0.9 mg/dL (0.2-1) 08/19/19 15:45 Direct Bilirubin 0.3 mg/dL (0.0-0.2) H 08/19/19 15:45 AST 202 U/L (15-37) H 08/19/19 15:45 ALT 178 U/L (13-61) H 08/19/19 15:45 Alkaline Phosphatase 129 U/L (45-117) H 08/19/19 15:45 Total Protein 8.2 g/dl (6.4-8.2) 08/19/19 15:45 Albumin 3.9 g/dl (3.4-5.0) 08/19/19 15:45 Beta-Hydroxybutyrate < 0.2 mg/dL (0.2-2.8) L 08/17/19 07:01 Current Medications Generic Name Dose Route Start Last Admin Trade Name Wendy PRN Reason Stop Dose Admin Aspirin 81 mg 08/17/19 10:00 08/19/19 09:40 Asa - PO 81 mg DAILY [facility] Administration Atorvastatin Calcium 10 mg 08/16/19 22:00 08/18/19 21:15 Lipitor - PO 10 mg HS [facility] Administration Heparin Sodium (Porcine) 5,000 unit 08/17/19 10:00 08/19/19 14:05 Heparin - SQ 5,000 unit TID [facility] Administration Insulin Aspart 1 vial 08/19/19 09:29 08/19/19 16:48 Novolog Vial Sliding Scale - SQ 6 units ACHS [facility] Administration Protocol Insulin Aspart 12 units 08/19/19 13:26 08/19/19 16:47 Novolog Mix 70/30 Vial SQ 12 units BIDAC [facility] Administration Levothyroxine Sodium 25 mcg 08/17/19 07:00 08/19/19 06:25 Synthroid - PO 25 mcg DAILY@0700 [facility] Administration Pantoprazole Sodium 40 mg 08/17/19 10:00 08/19/19 09:40 Protonix - PO 40 mg DAILY [facility] Administration Constitutional: Yes: Calm Eyes: Yes: Conjunctiva Clear HENT: Yes: Atraumatic, Other Neck: Yes: Trachea Midline Cardiovascular: Yes: Regular Rate and Rhythm Respiratory: Yes: CTA Bilaterally Gastrointestinal Inspection: Yes: WNL ...Auscultate: Yes: Normoactive Bowel Sounds ...Palpate: Yes: Soft, Other (nontender) ...Rectal Exam: Yes: Guaiac Negative (2+ prostate, brown guaiac negative) Edema: No Neurological: Yes: Alert, Oriented Labs: CBC, BMP 08/19/19 08:25 08/19/19 08:25 INR, PTT INR 1.18 (0.83-1.09) H 08/16/19 09:10 Laboratory Tests 08/16/19 08/16/19 08/17/19 09:10 17:15 07:01 Total Bilirubin 1.2 H 1.0 Direct Bilirubin AST 36 73 H ALT 43 53 Alkaline Phosphatase 98 91 COVID-19 ([facility]) Not detected 0708/19/19 08/19/19 07:30 08:25 15:45 Total Bilirubin 1.2 H 1.6 H 0.9 Direct Bilirubin 0.3 H AST 140 H 189 H 202 H ALT 89 H 145 H 178 H Alkaline Phosphatase 93 102 129 H COVID-19 ([facility]) Problem List - Problems (1) Abnormal LFTs (liver function tests) Code(s): R94.5 - ABNORMAL RESULTS OF LIVER FUNCTION STUDIES (2) Colon polyp Code(s): K63.5 - POLYP OF COLON (3) DKA (diabetic ketoacidoses) Code(s): E13.10 - OTH DIABETES MELLITUS WITH KETOACIDOSIS WITHOUT COMA Qualifiers: Diabetes mellitus type: type 1 Diabetes mellitus complication detail: without coma Qualified Code(s): E10.10 - Type 1 diabetes mellitus with ketoacidosis without coma (4) Dehydration Code(s): E86.0 - DEHYDRATION (5) Insulin dependent diabetes mellitus Code(s): [id number] - (6) Nausea & vomiting Code(s): R11.2 - NAUSEA WITH VOMITING, UNSPECIFIED Assessment/Plan Impression: - I suspect that the elevated transaminases reflect a reactive hepatopathy to DKA but cannot exclude contributory factors such as a terbinofine or statin DILI and MOREIRA. If the latter factors were promary I would have expected his initial transminases to be elevated - Personal h/o colon polyp Plan: -- Serial LFTs -- Screening for chronic liver diseases -- Sonogram to assess for a liver abscess, fatty liver and gallstones -- Stop statin -- Advised to arrange surveillance colonoscopy as an outpatient
[2019-08-19] MEDS ORDERED: INSULIN (NOVOLOG) ASPART 100 UNITS/ML 10ML VIAL ONE (22:04)
[2019-08-20] MEDS: HEPARIN NA (PORCINE) 5,000 UNITS/ML 1ML VIAL SQ SCH ×2 (06:37→13:04)
[2019-08-20] MEDS: INSULIN (NOVOLOG MIX 70/30) 100 UNITS/ML MDV SQ SCH (06:39)
[2019-08-20] MEDS: INSULIN SLIDING SCALE (NOVOLOG) 1 VIAL SQ SCH ×2 (06:43→12:15)
[2019-08-20] MEDS: LEVOTHYROXINE NA 25 MCG TABLET (FP) PO SCH (06:58)
[2019-08-20 07:51] LABS: BASO % 0.4 % (0-2.0); EOS % 3.5 % (0-4.5); HEMATOCRIT 34.3 % (35.4-49); HEMOGLOBIN 11.3 GM/dL (11.7-16.9); LYMPH % 45.8 % (8-40); MCH 31.5 pg (25.7-33.7); MEAN CELL VOLUME 95.6 fl (80-96); MEAN PLT VOLUME 9.5 fl (7.5-11.1); MONO % 9.3 % (3.8-10.2); PLATELET COUNT 158 K/MM3 (134-434); RBC 3.59 M/mm3 (4.00-5.60); RDW 13.9 % (11.9-15.9); WHITE BLOOD COUNT 3.7 K/mm3 (4.0-10.0)
[2019-08-20 08:12] LABS: ALBUMIN 2.8 g/dl (3.4-5.0); BILIRUBIN,TOTAL 0.8 mg/dL (0.2-1); BLOOD UREA NITROGEN 17.6 mg/dL (7-18); CALCIUM 8.2 mg/dL (8.5-10.1); POTASSIUM 4.6 mmol/L (3.5-5.1)
[2019-08-20 08:14] LABS: ALBUMIN 2.8 g/dl (3.4-5.0); BILIRUBIN,DIRECT 0.3 mg/dL (0.0-0.2); BILIRUBIN,TOTAL 0.8 mg/dL (0.2-1)
[2019-08-20 08:46] LABS: INR 0.91 (0.83-1.09); PROTHROMBIN TIME (PATIENT) 10.7 SEC (9.7-13.0)
--- NOTE | 2019-08-20 09:19 | PN ---
Progress Note, Physician Chief Complaint: Patient seen and examined at the bedside, no acute events from last night, sore throat. History of Present Illness: This 68 yr old male with PMH of HTN, CKD, hypothyroidism and IDDM admitted via ER with an acute diabetic ketoacidosis and an acute dehydration. - Current Medication List Current Medications: Active Medications Aspirin (Asa -) 81 mg PO DAILY [facility] Last Admin: 08/19/19 09:40 Dose: 81 mg Documented by: Heparin Sodium (Porcine) (Heparin -) 5,000 unit SQ TID [facility] Last Admin: 08/20/19 06:37 Dose: 5,000 unit Documented by: Insulin Aspart (Novolog Vial Sliding Scale -) 1 vial SQ ACHS [facility]; Protocol Last Admin: 08/20/19 06:43 Dose: 4 units Documented by: Insulin Aspart (Novolog Mix 70/30 Vial) 12 units SQ BIDAC [facility] Last Admin: 08/20/19 06:39 Dose: 12 units Documented by: Levothyroxine Sodium (Synthroid -) 25 mcg PO DAILY@0700 [facility] Last Admin: 08/20/19 06:58 Dose: 25 mcg Documented by: Pantoprazole Sodium (Protonix -) 40 mg PO DAILY [facility] Last Admin: 08/19/19 09:40 Dose: 40 mg Documented by: - Objective Vital Signs: Vital Signs Temperature 98.0 F 08/20/19 06:00 Pulse Rate 57 L 08/20/19 06:00 Respiratory Rate 18 08/20/19 06:00 Blood Pressure 130/55 L 08/20/19 06:00 O2 Sat by Pulse Oximetry (%) 99 08/19/19 21:00 Constitutional: Yes: Well Nourished, No Distress, Calm Eyes: Yes: Conjunctiva Clear, EOM Intact HENT: Yes: Atraumatic, Normocephalic Neck: Yes: Supple, Trachea Midline Cardiovascular: Yes: Regular Rate and Rhythm Respiratory: Yes: Regular, CTA Bilaterally Gastrointestinal: Yes: Normal Bowel Sounds, Soft ...Rectal Exam: Yes: Deferred Genitourinary: Yes: WNL Breast(s): Yes: WNL Musculoskeletal: Yes: WNL Extremities: Yes: WNL Edema: No Peripheral Pulses WNL: Yes Integumentary: Yes: WNL Neurological: Yes: WNL ...Motor Strength: WNL Psychiatric: Yes: WNL Labs: CBC, BMP 07/07/20 06:00 08/20/19 06:30 INR, PTT INR 0.91 (0.83-1.09) 08/20/19 06:30 - ....Imaging Other: Report Reviewed (lab data reviewed) Problem List - Problems (1) Dehydration Code(s): E86.0 - DEHYDRATION (2) Insulin dependent diabetes mellitus Code(s): [id number] - (3) Nausea & vomiting Code(s): R11.2 - NAUSEA WITH VOMITING, UNSPECIFIED (4) Muscle weakness (generalized) Code(s): M62.81 - MUSCLE WEAKNESS (GENERALIZED) (5) DKA (diabetic ketoacidoses) Code(s): E13.10 - OTH DIABETES MELLITUS WITH KETOACIDOSIS WITHOUT COMA Qualifiers: Diabetes mellitus type: type 1 Diabetes mellitus complication detail: witho ut coma Qualified Code(s): E10.10 - Type 1 diabetes mellitus with ketoacidosis without coma Assessment/Plan Assessment/plan: acute diabetic ketoacidosis, acute dehydration, acute tranaminasemia, acute beta hemolytic streptococcal group c infection of the throat, hypothyroidism, HLD, HTN, CKD, ultrasound report pending, d/c statin, adjusting dosage of Novolog 70/30 mix, Heparin and aspirin for DVT prophylaxis, oral Penicillin for treatment of an acute beta hemolytic streptococcal group c infection of the throat.
[2019-08-20] MEDS: PANTOPRAZOLE 40 MG TABLET PO SCH (10:36)
[2019-08-20] MEDS: ASPIRIN 81 MG CHEWABLE TABLETS PO SCH (10:36)
[2019-08-20] MEDS ORDERED: INSULIN (NOVOLOG MIX 70/30) 100 UNITS/ML MDV SQ SCH ×2 (11:26→14:11)
[2019-08-20] MEDS ORDERED: INSULIN (NOVOLOG) ASPART 100 UNITS/ML 10ML VIAL ONE ×2 (12:12→16:38)
[2019-08-20] MEDS ORDERED: PT OWN MED DRAWER 7, Y5N ONE ×2 (12:18→23:07)
[2019-08-20] MEDS: PENICILLIN V POTASSIUM 500 MG TABLET PO SCH ×3 (13:56→23:18)
--- NOTE | 2019-08-20 20:23 | PN.GI ---
GI Progress Note Subjective: GI NOte: LFTs are slowly trending down. The sonogram of the liver and GB is unremarkable. David has no GI complaints - Objective Vital Signs: Vital Signs Temperature 98.1 F 08/20/19 20:07 Pulse Rate 67 08/20/19 20:07 Respiratory Rate 18 08/20/19 20:07 Blood Pressure 141/85 08/20/19 20:07 O2 Sat by Pulse Oximetry (%) 100 08/20/19 09:00 Laboratory Tests 08/16/19 08/18/19 08/19/19 17:15 11:55 15:45 Iron TIBC Iron Saturation Unsaturated IBC Ferritin Total Bilirubin Direct Bilirubin GGT AST 202 H ALT 178 H Alkaline Phosphatase GEO Screen Smooth Musc &INSIDE WIREMAN Intrp Tiss Transglutamin IgG Tiss Transglutamin IgA COVID-19 ([facility]) Not detected Hep A IgM Ab Confirm Hepatitis A Ab Total Hep Bs Antigen Hep Bs Antibody Hep B Core Total Ab Hep B Core IgM Ab Hepatitis Be Antibody Hepatitis Be Antigen Hep C Ab Diagnostic Liver Fibrosis Limits Pending 08/19/19 08/20/19 08/20/19 15:45 06:30 06:30 Iron 68 TIBC 192 L Iron Saturation 35 Unsaturated IBC 124 L Ferritin 217.4 Total Bilirubin Direct Bilirubin GGT 141 H AST ALT Alkaline Phosphatase GEO Screen Smooth Musc &INSIDE WIREMAN Intrp Tiss Transglutamin IgG Tiss Transglutamin IgA COVID-19 (CARLOS) Hep A IgM Ab Confirm Pending Hepatitis A Ab Total Pending Hep Bs Antigen Pending Hep Bs Antibody Pending Hep B Core Total Ab Pending Hep B Core IgM Ab Pending Hepatitis Be Antibody Pending Hepatitis Be Antigen Pending Hep C Ab Diagnostic Pending Liver Fibrosis Limits 08/20/19 08/20/19 06:30 06:30 Iron TIBC Iron Saturation Unsaturated IBC Ferritin Total Bilirubin 0.8 Direct Bilirubin 0.3 H GGT AST 184 H ALT 153 H Alkaline Phosphatase 102 GEO Screen Pending Smooth Musc &INSIDE WIREMAN Intrp Pending Tiss Transglutamin IgG Pending Tiss Transglutamin IgA Pending COVID-19 ([facility]) Hep A IgM Ab Confirm Hepatitis A Ab Total Hep Bs Antigen Hep Bs Antibody Hep B Core Total Ab Hep B Core IgM Ab Hepatitis Be Antibody Hepatitis Be Antigen Hep C Ab Diagnostic Liver Fibrosis Limits Constitutional: Calm Eyes: Yes: Conjunctiva Clear ...Auscultate: Yes: Normoactive Bowel Sounds ...Palpate: Yes: Soft, Other (nontender) Labs: CBC, BMP 08/20/19 06:00 08/20/19 06:30 INR, PTT INR 0.91 (0.83-1.09) 08/20/19 06:30 Assessment/Plan Impression: - Resolving reactive hepatopathy to DKA with perhaps contributory factors such as a terbinofine or statin DILI - Personal h/o colon polyp Plan: -- If tomorrow's LFTs continue to downtrend I have no GI objections to discharge. I advised him to have repeat LFs within a week with Dr Guo and to followup in our office if Dr Guo agress. -- Refrain form resuming statin or Lamasil until LFTs normalize -- Advised to arrange surveillance colonoscopy after 6 months as an outpatient Problem List - Problems (1) Abnormal LFTs (liver function tests) Code(s): R94.5 - ABNORMAL RESULTS OF LIVER FUNCTION STUDIES (2) Colon polyp Code(s): K63.5 - POLYP OF COLON (3) DKA (diabetic ketoacidoses) Code(s): E13.10 - OTH DIABETES MELLITUS WITH KETOACIDOSIS WITHOUT COMA Qualifiers: Diabetes mellitus type: type 1 Diabetes mellitus complication detail: without coma Qualified Code(s): E10.10 - Type 1 diabetes mellitus with ketoacidosis without coma (4) Dehydration Code(s): E86.0 - DEHYDRATION (5) Insulin dependent diabetes mellitus Code(s): [id number] - (6) Nausea & vomiting Code(s): R11.2 - NAUSEA WITH VOMITING, UNSPECIFIED
[2019-08-21 02:07] LABS: FIBROSIS SCORE. 0.25 (0.00-0.21); HCV ALPHA 2 MACRO CHART 192 mg/dL (110-276); NECRO.INFLAM ACT.SCORE 0.55 (0.00-0.17); NECROINFLAM. ACTIVITY GRADE A2-Moderate activity (.)
[2019-08-21] MEDS ORDERED: PT OWN MED DRAWER 7, Y5N ONE ×2 (05:55→11:40)
[2019-08-21] MEDS: INSULIN (NOVOLOG MIX 70/30) 100 UNITS/ML MDV SQ SCH ×2 (06:00→16:17)
[2019-08-21] MEDS: LEVOTHYROXINE NA 25 MCG TABLET (FP) PO SCH (06:02)
[2019-08-21] MEDS: PENICILLIN V POTASSIUM 500 MG TABLET PO SCH ×4 (06:02→23:34)
[2019-08-21 08:07] LABS: TRANSGLUTAMINASE IGA < 2 U/mL (0-3); TRANSGLUTAMINASE IGG 5 U/mL (0-5)
[2019-08-21 08:47] LABS: BASO % 0.5 % (0-2.0); EOS % 2.5 % (0-4.5); HEMATOCRIT 33.8 % (35.4-49); HEMOGLOBIN 10.9 GM/dL (11.7-16.9); LYMPH % 37.5 % (8-40); MCH 30.5 pg (25.7-33.7); MCHC 32.2 g/dl (32.0-35.9); MEAN CELL VOLUME 94.9 fl (80-96); MEAN PLT VOLUME 9.3 fl (7.5-11.1); MONO % 9.6 % (3.8-10.2); NEUT % 49.9 % (42.8-82.8); PLATELET COUNT 171 K/MM3 (134-434); RBC 3.56 M/mm3 (4.00-5.60); WHITE BLOOD COUNT 3.6 K/mm3 (4.0-10.0)
[2019-08-21 09:15] LABS: ALBUMIN 2.9 g/dl (3.4-5.0); BILIRUBIN,DIRECT 0.2 mg/dL (0.0-0.2); BILIRUBIN,TOTAL 0.7 mg/dL (0.2-1); BLOOD UREA NITROGEN 13.5 mg/dL (7-18); CALCIUM 8.3 mg/dL (8.5-10.1); CREATININE 1.1 mg/dL (0.55-1.3); POTASSIUM 4.8 mmol/L (3.5-5.1); TOT PROT 6.3 g/dl (6.4-8.2)
[2019-08-21] MEDS: PANTOPRAZOLE 40 MG TABLET PO SCH (09:35)
[2019-08-21] MEDS: ASPIRIN 81 MG CHEWABLE TABLETS PO SCH (09:35)
--- NOTE | 2019-08-21 09:51 | PN ---
Progress Note, Physician Chief Complaint: Patient seen and examined at the bedside, no acute events from last night, sore throat markedly diminished. History of Present Illness: This 68 yr old male with PMH of IDDM, HTN, CKD, hypothyroidism admitted via ER with an acute diabetic ketoacidosis and an acute dehydration. - Current Medication List Current Medications: Active Medications Aspirin (Asa -) 81 mg PO DAILY [facility] Last Admin: 08/21/19 09:35 Dose: 81 mg Documented by: Insulin Aspart (Novolog Mix 70/30 Vial) 17 units SQ BIDAC [facility] Last Admin: 08/21/19 06:00 Dose: 17 units Documented by: Levothyroxine Sodium (Synthroid -) 25 mcg PO DAILY@0700 [facility] Last Admin: 08/21/19 06:02 Dose: 25 mcg Documented by: Pantoprazole Sodium (Protonix -) 40 mg PO DAILY [facility] Last Admin: 08/21/19 09:35 Dose: 40 mg Documented by: Penicillin V Potassium (Pen Vee K -) 500 mg PO Q6HPO [facility] Last Admin: 08/21/19 06:02 Dose: 500 mg Documented by: - Objective Vital Signs: Vital Signs Temperature 98.1 F 08/21/19 05:00 Pulse Rate 60 08/21/19 05:00 Respiratory Rate 18 08/21/19 05:00 Blood Pressure 139/85 08/21/19 05:00 O2 Sat by Pulse Oximetry (%) 100 08/20/19 21:00 Constitutional: Yes: Well Nourished, No Distress, Calm Eyes: Yes: Conjunctiva Clear, EOM Intact HENT: Yes: Atraumatic, Normocephalic Neck: Yes: Supple, Trachea Midline Cardiovascular: Yes: Regular Rate and Rhythm Respiratory: Yes: Regular, CTA Bilaterally Gastrointestinal: Yes: Normal Bowel Sounds, Soft ...Rectal Exam: Yes: Deferred Genitourinary: Yes: WNL Breast(s): Yes: WNL Musculoskeletal: Yes: WNL Extremities: Yes: WNL Edema: No Peripheral Pulses WNL: Yes Integumentary: Yes: WNL Neurological: Yes: WNL ...Motor Strength: WNL Psychiatric: Yes: WNL Labs: CBC, BMP 08/21/19 07:45 08/21/19 07:45 INR, PTT INR 0.91 (0.83-1.09) 08/20/19 06:30 - ....Imaging Other: Report Reviewed (lab data reviewed) Problem List - Problems (1) Dehydration Code(s): E86.0 - DEHYDRATION (2) Insulin dependent diabetes mellitus Code(s): [id number] - (3) Nausea & vomiting Code(s): R11.2 - NAUSEA WITH VOMITING, UNSPECIFIED (4) Muscle weakness (generalized) Code(s): M62.81 - MUSCLE WEAKNESS (GENERALIZED) (5) DKA (diabetic ketoacidoses) Code(s): E13.10 - OTH DIABETES MELLITUS WITH KETOACIDOSIS WITHOUT COMA Qualifiers: Diabetes mellitus type: type 1 Diabetes mellitus complication detail: without coma Qualified Code(s): E10.10 - Type 1 diabetes mellitus with ketoacidosis without coma Assessment/Plan Assessment/plan: acute diabetic ketoacidosis, acute dehydration, acute transaminasemia, acute beta hemolytic streptococcal group c infection of the throat gradually subsiding, hypothyroidism, HTN, HLD, CKD; Novolog 70/30 mix adjusting dosage, oral Penicillin VK for throat infection, and aspirin.
[2019-08-21] MEDS ORDERED: INSULIN (NOVOLOG) ASPART 100 UNITS/ML 10ML VIAL ONE (11:41)
[2019-08-21] MEDS ORDERED: INSULIN SLIDING SCALE (NOVOLOG) 1 VIAL SQ SCH (16:30)
[2019-08-21] MEDS ORDERED: INSULIN (NOVOLOG MIX 70/30) 100 UNITS/ML MDV SQ SCH (19:39)
[2019-08-21 21:07] LABS: HEP B CORE AB, TOT Negative (Negative)
[2019-08-22] MEDS: LEVOTHYROXINE NA 25 MCG TABLET (FP) PO SCH (06:35)
[2019-08-22] MEDS: PENICILLIN V POTASSIUM 500 MG TABLET PO SCH ×2 (06:35→11:41)
[2019-08-22 08:11] LABS: BASO % 0.3 % (0-2.0); EOS % 1.6 % (0-4.5); HEMATOCRIT 35.8 % (35.4-49); HEMOGLOBIN 11.8 GM/dL (11.7-16.9); LYMPH % 29.5 % (8-40); MCH 31.5 pg (25.7-33.7); MEAN CELL VOLUME 95.4 fl (80-96); MEAN PLT VOLUME 9.2 fl (7.5-11.1); MONO % 9.7 % (3.8-10.2); NEUT % 58.9 % (42.8-82.8); PLATELET COUNT 186 K/MM3 (134-434); RBC 3.76 M/mm3 (4.00-5.60); RDW 13.7 % (11.9-15.9); WHITE BLOOD COUNT 5.9 K/mm3 (4.0-10.0)
[2019-08-22 08:37] LABS: ALBUMIN 3.2 g/dl (3.4-5.0); BILIRUBIN,DIRECT 0.2 mg/dL (0.0-0.2); BILIRUBIN,TOTAL 0.6 mg/dL (0.2-1); BLOOD UREA NITROGEN 15.5 mg/dL (7-18); CALCIUM 8.6 mg/dL (8.5-10.1); CREATININE 1.1 mg/dL (0.55-1.3); POTASSIUM 4.9 mmol/L (3.5-5.1); TOT PROT 6.8 g/dl (6.4-8.2)
[2019-08-22] MEDS ORDERED: INSULIN (NOVOLOG MIX 70/30) 100 UNITS/ML MDV SQ SCH ×2 (08:39→09:30)
--- NOTE | 2019-08-22 08:44 | PN ---
Progress Note, Physician Chief Complaint: Patient seen and examined at the bedside, no acute events from last night, afebrile, edema of lower extremities. History of Present Illness: This 68 yr old male with PMH of IDDM, HTN, CKD, hypothyroidism admitted via ER with an acute diabetic ketoacidosis and an acute dehydration. - Current Medication List Current Medications: Active Medications Aspirin (Asa -) 81 mg PO DAILY [facility] Last Admin: 08/21/19 09:35 Dose: 81 mg Documented by: Insulin Aspart (Novolog Mix 70/30 Vial) 17 units SQ BIDAC [facility] Levothyroxine Sodium (Synthroid -) 25 mcg PO DAILY@0700 [facility] Last Admin: 08/22/19 06:35 Dose: 25 mcg Documented by: Pantoprazole Sodium (Protonix -) 40 mg PO DAILY [facility] Last Admin: 08/21/19 09:35 Dose: 40 mg Documented by: Penicillin V Potassium (Pen Vee K -) 500 mg PO Q6HPO [facility] Last Admin: 08/22/19 06:35 Dose: 500 mg Documented by: - Objective Vital Signs: Vital Signs Temperature 98.6 F 08/22/19 04:00 Pulse Rate 56 L 08/22/19 04:00 Respiratory Rate 18 08/22/19 04:00 Blood Pressure 166/81 08/22/19 04:00 O2 Sat by Pulse Oximetry (%) 100 08/21/19 21:00 Constitutional: Yes: Well Nourished, No Distress, Calm Eyes: Yes: Conjunctiva Clear, EOM Intact HENT: Yes: Atraumatic, Normocephalic Neck: Yes: Supple, Trachea Midline Cardiovascular: Yes: Regular Rate and Rhythm Respiratory: Yes: Regular, CTA Bilaterally Gastrointestinal: Yes: Normal Bowel Sounds, Soft ...Rectal Exam: Yes: Deferred Genitourinary: Yes: WNL Breast(s): Yes: WNL Musculoskeletal: Yes: WNL Extremities: Yes: WNL Edema: Yes Edema: LLE: 1+, RLE: 1+ Peripheral Pulses WNL: Yes Integumentary: Yes: WNL Neurological: Yes: WNL ...Motor Strength: WNL Psychiatric: Yes: WNL Labs: CBC, BMP 08/22/19 07:44 08/22/19 07:44 INR, PTT INR 0.91 (0.83-1.09) 08/20/19 06:30 - ....Imaging Other: Report Reviewed (lab data reviewed) Problem List - Problems (1) Dehydration Code(s): E86.0 - DEHYDRATION (2) Insulin dependent diabetes mellitus Code(s): [id number] - (3) Nausea & vomiting Code(s): R11.2 - NAUSEA WITH VOMITING, UNSPECIFIED (4) Muscle weakness (generalized) Code(s): M62.81 - MUSCLE WEAKNESS (GENERALIZED) (5) DKA (diabetic ketoacidoses) Code(s): E13.10 - OTH DIABETES MELLITUS WITH KETOACIDOSIS WITHOUT COMA Qualifiers: Diabetes mellitus type: type 1 Diabetes mellitus complication detail: without coma Qualified Code(s): E10.10 - Type 1 diabetes mellitus with ketoacidosis without coma Assessment/Plan Assessment/plan: acute diabetic ketoacidosis, acute dehydration, acute beta hemolytic streptococcal group c infection of the throat, acute transaminasemia, HTN, CKD, hypothyroidism; Novolog 70/30 mix 17 units SQ bid for IDDM, oral Penicillin for throat infection, GI prophylaxis, and levothyroxine for hypothyroidism, follow up with GI Dr. Donohue for acute transaminasemia, follow up with Dr. Guo and his mobility architect, discharge planning, social media designer request.
[2019-08-22] MEDS: ASPIRIN 81 MG CHEWABLE TABLETS PO SCH (09:28)
[2019-08-22] MEDS: PANTOPRAZOLE 40 MG TABLET PO SCH (09:28)
--- NOTE | 2019-08-22 09:38 | DS ---
Physical Examination Vital Signs: Vital Signs Temperature 97.7 F 08/22/19 08:50 Pulse Rate 66 08/22/19 08:50 Respiratory Rate 20 08/22/19 08:50 Blood Pressure 145/87 08/22/19 08:50 O2 Sat by Pulse Oximetry (%) 99 08/22/19 08:50 Constitutional: Yes: Well Nourished, No Distress, Calm Eyes: Yes: Conjunctiva Clear, EOM Intact HENT: Yes: Atraumatic, Normocephalic Neck: Yes: Supple, Trachea Midline Cardiovascular: Yes: Regular Rate and Rhythm Respiratory: Yes: Regular, CTA Bilaterally Gastrointestinal: Yes: Normal Bowel Sounds, Soft ...Rectal Exam: Yes: Deferred Renal/: Yes: WNL Breast(s): Yes: WNL Musculoskeletal: Yes: WNL Extremities: Yes: WNL Edema: Yes Edema: LLE: 1+, RLE: 1+ Peripheral Pulses WNL: Yes Integumentary: Yes: WNL Neurological: Yes: WNL ...Motor Strength: WNL Psychiatric: Yes: WNL Labs: CBC, BMP 08/22/19 07:44 08/22/19 07:44 Discharge Summary Problems reviewed: Yes Reason For Visit: DIABETIC KETOACIDOSIS Current Active Problems Abnormal LFTs (liver function tests) (Acute) Colon polyp (Acute) DKA (diabetic ketoacidoses) (Acute) Dehydration (Acute) Insulin dependent diabetes mellitus (Acute) Muscle weakness (generalized) (Acute) Nausea & vomiting (Acute) Condition: Improved - Instructions Diet, Activity, Other Instructions: Continue present meds. Novolog 70/30 mix 17 units SQ bid. Losartan 100mg po daily. Activity as tolerated. Follow up with Dr. Guo within next 10 days. Follow up with GI Dr. Donohue within next 2 weeks. Follow up with Spanish Speaking [facility]. Total time spent over 30 minutes. Referrals: Moisés Guo [Primary Care Provider] - - Home Medications Comprehensive Discharge Medication List: Ambulatory Orders Aspirin 81 mg PO DAILY 06/27/11 Levothyroxine Sodium [Synthroid] 25 mcg PO DAILY 06/27/11 Aspirin [ASA -] 81 mg PO DAILY tab.chew 08/22/19 Insulin (Novolog 70/30) [Novolog Mix 70/30 Vial -] 17 units SQ BIDAC units 08/22/19 Insulin (Novolog 70/30) [Novolog Mix 70/30 Vial -] 17 units SQ BIDAC units 08/22/19 Levothyroxine [Synthroid -] 25 mcg PO DAILY@0700 tablet 08/22/19 Penicillin V Potassium [Pen Vee K -] 500 mg PO Q6HPO #14 tablet 08/22/19
[2019-08-22] MEDS ORDERED: LOSARTAN POTASSIUM 50 MG TABLET (FP) PO SCH (10:00)
[2019-08-22] MEDS ORDERED: PT OWN MED DRAWER 7, Y5N ONE (11:35)
[2019-08-22 13:21] VITALS: BP 146/87; PULSE 68; TEMP 98.1
== END 2019-08-22 14:50 | disposition home or self-care (01) | DRG 638 ==
LOC: JER 08:53 → JERBED 12:55 → J6WEST-2 08-17 14:50 → J5S 08-19 19:28
PROVIDERS: ADMIT Internal Medicine; ATTEND Internal Medicine
DX: E11.10 Type 2 diabetes mellitus with ketoacidosis without coma (principal); E87.2 Acidosis; E87.1 Hypo-osmolality and hyponatremia; R11.2 Nausea with vomiting, unspecified; E03.9 Hypothyroidism, unspecified; M62.81 Muscle weakness (generalized); R74.0 Nonspecific elevation of levels of transaminase and lactic acid dehydrogenase [LDH]; J02.8 Acute pharyngitis due to other specified organisms; B95.7 Other staphylococcus as the cause of diseases classified elsewhere; E86.0 Dehydration; E66.9 Obesity, unspecified; Z68.32 Body mass index [BMI] 32.0-32.9, adult; E87.5 Hyperkalemia; I12.9 Hypertensive chronic kidney disease with stage 1 through stage 4 chronic kidney disease, or unspecified chronic kidney disease; E11.22 Type 2 diabetes mellitus with diabetic chronic kidney disease; N18.9 Chronic kidney disease, unspecified; E78.5 Hyperlipidemia, unspecified; K63.5 Polyp of colon
CPT/HCPCS: 36415; 71045-TC-FY; 76705-TC; 80048; 80053; 80076; 81003; 82010; 82172; 82728; 82803; 82962; 82977; 83010; 83036; 83516; 83540; 83550; 83605; 83735; 83883; 84100; 84460; 85025; 85610; 86038; 86704; 86706; 86707; 86708; 86709; 86803; 87070; 87077; 87086; 87340; 93005; 93010; 99285-25; J1644; U0003

== ENCOUNTER 2022-03-19 16:14 | Emergency (ER) | payer BC, OTHER ==
[2022-03-19 16:32] VITALS: BP 167/82; PULSE 81; RESP 18; TEMP 97.9; BMI 33.7
[2022-03-19 19:40] LABS: CALCIUM 8.6 mg/dL (8.5-10.1)
[2022-03-19 19:41] LABS: ALBUMIN 3.5 g/dl (3.4-5.0); BLOOD UREA NITROGEN 19.2 mg/dL (7-18)
[2022-03-19 19:44] LABS: CREATININE 1.3 mg/dL (0.55-1.3)
[2022-03-19 19:45] LABS: TOT PROT 7.2 g/dl (6.4-8.2)
[2022-03-19 19:46] LABS: BILIRUBIN,TOTAL 0.4 mg/dL (0.2-1)
== END 2022-03-19 20:14 | disposition home or self-care (01) ==
LOC: JER 16:14
DX: E10.628 Type 1 diabetes mellitus with other skin complications (principal); R22.43 Localized swelling, mass and lump, lower limb, bilateral
CPT/HCPCS: 36415; 73590-TC-RT-FY; 80053; 93971-TC; 99285-25

== ENCOUNTER 2023-08-05 13:37 | Observation (INO) | payer OTHER ==
[2023-08-05 13:48] VITALS: BMI 34.4
[2023-08-05 14:21] LABS: BASO % 0.2 % (0-2.0); EOS % 0.1 % (0-4.5); HEMATOCRIT 35.5 % (35.4-49); HEMOGLOBIN 11.4 GM/dL (11.7-16.9); LYMPH % 4.5 % (8-40); MCHC 32.2 g/dl (32.0-35.9); MEAN CELL VOLUME 99.6 fl (80-96); MEAN PLT VOLUME 8.3 fl (7.5-11.1); MONO % 6.4 % (3.8-10.2); NEUT % 88.8 % (42.8-82.8); PLATELET COUNT 230 10^3/uL (134-434); RBC 3.57 M/mm3 (4.00-5.60); RDW 14.2 % (11.9-15.9); WHITE BLOOD COUNT 7.2 K/mm3 (4.0-10.0)
[2023-08-05 14:25] LABS: VENOUS BASE EXCESS -6.1 mmol/L (-2-2); VENOUS PCO2 36.6 mmHg (38-52); VENOUS PH 7.334 (7.310-7.410)
[2023-08-05 14:27] LABS: INR 1.07 (0.83-1.09); PROTHROMBIN TIME (PATIENT) 12.3 SEC (9.7-13.0)
[2023-08-05 14:30] LABS: ACTIVATED PTT 27.8 SECONDS (25.2-36.5)
[2023-08-05 14:41] LABS: CHLORIDE 96 mmol/L (98-107); POTASSIUM 4.6 mmol/L (3.5-5.1); SODIUM 132 mmol/L (136-145)
[2023-08-05 14:43] LABS: CALCIUM 9.1 mg/dL (8.5-10.1); MAGNESIUM 2.4 mg/dL (1.8-2.4)
[2023-08-05] MEDS: SODIUM CHLORIDE 0.9% 500 ML INFUS.BAG IV ONE ×2 (14:43→15:52)
[2023-08-05 14:44] LABS: ANION GAP 17 mmol/L (4-13); BLOOD UREA NITROGEN 40.2 mg/dL (7-18); CO2 20 mmol/L (21-32)
[2023-08-05 14:46] LABS: CREATININE 1.9 mg/dL (0.55-1.3)
[2023-08-05 14:47] LABS: SGOT/AST 37 U/L (15-37); SGPT/ALT 37 U/L (13-61)
[2023-08-05 14:48] LABS: TOT PROT 7.4 g/dl (6.4-8.2)
[2023-08-05 14:49] LABS: ALK PHOS 113 U/L (45-117)
[2023-08-05 15:10] LABS: BILIRUBIN,TOTAL 3.2 mg/dL (0.2-1); GLUCOSE,RANDOM 593 mg/dL (74-106)
[2023-08-05] MEDS ORDERED: INSULIN REGULAR HUMAN 100 UNITS/ML *VIAL ONE (15:41)
[2023-08-05] MEDS: INSULIN REGULAR HUMAN 100 UNITS/ML *VIAL SQ ONE (15:52)
[2023-08-05] MEDS ORDERED: ACETAMINOPHEN INJECTION 100 ML IVPB ONE (18:03)
[2023-08-05] MEDS: ACETAMINOPHEN 1000 MG/100 ML BAG IVPB ONE (18:11)
[2023-08-05 18:47] LABS: CHLORIDE 100 mmol/L (98-107); POTASSIUM 4.9 mmol/L (3.5-5.1); SODIUM 135 mmol/L (136-145)
[2023-08-05 18:49] LABS: ANION GAP 14 mmol/L (4-13); BLOOD UREA NITROGEN 38.4 mg/dL (7-18); CALCIUM 8.7 mg/dL (8.5-10.1); CO2 21 mmol/L (21-32)
[2023-08-05 18:50] LABS: ALBUMIN 3.9 g/dl (3.4-5.0)
[2023-08-05 18:53] LABS: CREATININE 1.9 mg/dL (0.55-1.3); SGOT/AST 40 U/L (15-37); SGPT/ALT 44 U/L (13-61)
[2023-08-05 18:54] LABS: BILIRUBIN,TOTAL 2.1 mg/dL (0.2-1); TOT PROT 7.3 g/dl (6.4-8.2)
[2023-08-05 18:55] LABS: ALK PHOS 113 U/L (45-117)
[2023-08-05 19:43] LABS: GLUCOSE,RANDOM 536 mg/dL (74-106)
[2023-08-05] MEDS: D5-1/2NS+10 MEQ KCL - 10 MEQ/1,000 ML INFUS.BAG IV SCH (19:48)
[2023-08-05] MEDS ORDERED: INSULIN (LEVEMIR) 100 UNITS/ML UNITS SQ ONE (19:56)
[2023-08-05] MEDS: INSULIN (LEVEMIR) 100 UNITS/ML UNITS SQ SCH (20:00)
[2023-08-05] MEDS ORDERED: PANTOPRAZOLE SODIUM 40 MG/100 ML BAG IVPB ONE (20:49)
[2023-08-05] MEDS ORDERED: INSULIN ASPART SLIDING SCALE (NOVOLOG) 1 VIAL SQ ONE (20:49)
[2023-08-05] MEDS: PANTOPRAZOLE SODIUM 40 MG VIAL IVPUSH SCH (20:57)
[2023-08-05] MEDS: INSULIN ASPART SLIDING SCALE (NOVOLOG) 1 VIAL SQ SCH (20:57)
[2023-08-05] MEDS ORDERED: INSULIN ASPART SLIDING SCALE (NOVOLOG) 1 VIAL SQ SCH (21:19)
[2023-08-05] MEDS ORDERED: ONDANSETRON 4 MG/2 ML VIAL IVPUSH PRN (21:20)
[2023-08-05] MEDS ORDERED: ACETAMINOPHEN 325 MG TABLET (FP) PO PRN (21:20)
[2023-08-05] MEDS ORDERED: SODIUM CHLORIDE 0.45%/POT 20 MEQ/1,000 ML INFUS.BAG IV SCH (22:00)
[2023-08-05] MEDS ORDERED: HEPARIN NA (PORCINE) 5,000 UNITS/ML 1ML VIAL ONE (22:04)
[2023-08-05] MEDS: HEPARIN NA (PORCINE) 5,000 UNITS/ML 1ML VIAL SQ SCH (22:08)
[2023-08-05] MEDS: SODIUM CHLORIDE 0.45%/POT 20 MEQ/1,000 ML INFUS.BAG IV SCH (22:08)
[2023-08-06 01:45] LABS: URINE APPEARANCE CLEAR; URINE BILIRUBIN NEGATIVE (NEGATIVE); URINE COLOR YELLOW; URINE GLUCOSE (UA) 3+ (NEGATIVE); URINE KETONE 1+ (NEGATIVE); URINE LEUK ESTERASE NEGATIVE (NEGATIVE); URINE NITRITE NEGATIVE (NEGATIVE); URINE PROTEIN NEGATIVE (NEGATIVE)
[2023-08-06] MEDS ORDERED: INSULIN (LEVEMIR) 100 UNITS/ML UNITS SQ SCH ×3 (03:48→07:57)
[2023-08-06] MEDS: INSULIN ASPART SLIDING SCALE (NOVOLOG) 1 VIAL SQ SCH ×2 (04:25→08:16)
[2023-08-06] MEDS: LEVOTHYROXINE NA 200 MCG TABLET PO SCH (06:51)
[2023-08-06 07:02] VITALS: RESP 18
[2023-08-06] MEDS: INSULIN (LEVEMIR) 100 UNITS/ML UNITS SQ SCH ×2 (08:15→22:26)
[2023-08-06 08:40] LABS: POTASSIUM 4.3 mmol/L (3.5-5.1)
[2023-08-06 09:07] LABS: CALCIUM 8.6 mg/dL (8.5-10.1)
[2023-08-06 09:08] LABS: BLOOD UREA NITROGEN 31.9 mg/dL (7-18)
[2023-08-06 09:11] LABS: CREATININE 1.7 mg/dL (0.55-1.3)
[2023-08-06] MEDS: PANTOPRAZOLE 40 MG TABLET PO SCH (10:17)
[2023-08-06] MEDS ORDERED: CYANOCOBALAMIN (VITAMIN B-12) 1000 MCG/1 ML VIAL IM ONE (12:30)
[2023-08-06] MEDS: CYANOCOBALAMIN (VITAMIN B-12) 1000 MCG/1 ML VIAL IM ONE (15:03)
[2023-08-06] MEDS: SODIUM CHLORIDE 0.45%/POT 20 MEQ/1,000 ML INFUS.BAG IV SCH ×2 (15:49→23:10)
[2023-08-06 21:20] LABS: BASO % 0.6 % (0-2.0); HEMOGLOBIN 11.4 GM/dL (11.7-16.9); LYMPH % 29.3 % (8-40); MCH 32.3 pg (25.7-33.7); MCHC 32.5 g/dl (32.0-35.9); MEAN CELL VOLUME 99.3 fl (80-96); MEAN PLT VOLUME 8.1 fl (7.5-11.1); MONO % 19.4 % (3.8-10.2); NEUT % 49.7 % (42.8-82.8); PLATELET COUNT 194 10^3/uL (134-434); RBC 3.53 M/mm3 (4.00-5.60); RDW 14.6 % (11.9-15.9)
[2023-08-07 07:33] LABS: HEMATOCRIT 33.7 % (35.4-49); HEMOGLOBIN 11.2 GM/dL (11.7-16.9); MCH 32.2 pg (25.7-33.7); MCHC 33.1 g/dl (32.0-35.9); MEAN CELL VOLUME 97.1 fl (80-96); MEAN PLT VOLUME 7.7 fl (7.5-11.1); PLATELET COUNT 178 10^3/uL (134-434); RBC 3.47 M/mm3 (4.00-5.60); RDW 14.4 % (11.9-15.9); WHITE BLOOD COUNT 3.2 K/mm3 (4.0-10.0)
[2023-08-07 07:51] LABS: POTASSIUM 4.3 mmol/L (3.5-5.1)
[2023-08-07 07:54] LABS: CALCIUM 8.3 mg/dL (8.5-10.1)
[2023-08-07 07:55] LABS: BLOOD UREA NITROGEN 18.2 mg/dL (7-18)
[2023-08-07 07:58] LABS: CREATININE 1.1 mg/dL (0.55-1.3)
[2023-08-07 10:05] LABS: ANISOCYTOSIS 0; MACROCYTOSIS 0
[2023-08-07] MEDS: CYANOCOBALAMIN (VITAMIN B-12) 1000 MCG/1 ML VIAL IM SCH (10:13)
[2023-08-07 14:23] VITALS: BP 142/77; PULSE 75; TEMP 98
== END 2023-08-07 14:42 | disposition home or self-care (01) ==
LOC: JER 13:37 → UNDOADMOB 19:27 → JERBED 19:27 → OBSVTOIN 19:32 → INTOOBSV 19:32 → J4S 08-06 01:21 → JERBED 08-06 01:21 → J4S 08-07 09:43 → JERBED 08-07 09:43
PROVIDERS: ADMIT Internal Medicine; ATTEND Internal Medicine
PROC: 3E033NZ Introduction of Analgesics, Hypnotics, Sedatives into Peripheral Vein, Percutaneous Approach (ICD-10-PCS; principal; 2023-08-07)
PROC: 3E023GC Introduction of Other Therapeutic Substance into Muscle, Percutaneous Approach (ICD-10-PCS; 2023-08-07)
PROC: 3E013VG Introduction of Insulin into Subcutaneous Tissue, Percutaneous Approach (ICD-10-PCS; 2023-08-07)
PROC: 3E033GC Introduction of Other Therapeutic Substance into Peripheral Vein, Percutaneous Approach (ICD-10-PCS; 2023-08-07)
PROC: 3E0337Z Introduction of Electrolytic and Water Balance Substance into Peripheral Vein, Percutaneous Approach (ICD-10-PCS; 2023-08-07)
DX: U07.1 COVID-19 (principal); E13.10 Other specified diabetes mellitus with ketoacidosis without coma; E86.0 Dehydration; E87.1 Hypo-osmolality and hyponatremia; R78.89 Finding of other specified substances, not normally found in blood; I10 Essential (primary) hypertension; E78.5 Hyperlipidemia, unspecified; E03.9 Hypothyroidism, unspecified; E80.6 Other disorders of bilirubin metabolism; E53.8 Deficiency of other specified B group vitamins; R94.5 Abnormal results of liver function studies
CPT/HCPCS: 0241U-QW; 36415; 71045-TC-FY; 80048; 80053; 81003; 82010; 82550; 82553; 82607; 82746; 82747; 82803; 82962; 83036; 83690; 83735; 84484; 85014; 85025; 85610; 85730; 93005; 93010; 96365; 96366; 96372; 96375; 97116-GP; 97161-GP; 99285-25; G0378; J0131; J1644; J3480